=== PATIENT | male | born 1950 | race African-American/Black ===

== ENCOUNTER → 2016-03-29 | Outpatient (CLI) | payer MEDICARE, OTHER ==
--- NOTE | 2016-03-29 09:34 | ST Modified Barium Swallow ---
Recommendation - Recommendations Recommendations: 1) DIET: continue current diet. 2) Fully upright during meals. 3) Pt reports following GI-in agreement with continued GI consult. SUMMARY: Pt presents with safe swallow. No penetration or aspiration observed during study. No pharyngeal residuals seen during MBSS. Per RA, possible calcification around approximately level of C3-4. Calcification possibly resulting in reduced pharyngeal peristalsis and occasionally obstructing epiglottic inversion, however not resulting in penetration, aspiration, or pharyngeal residuals. Pt observed to have possible variance of hyoid and epiglottis, however did not result in reduced swallow safety. Pt completed barium swallow prior to MBSS, RA reported hiatal hernia and reflux observed. Medical Diagnoses - Medical Diagnoses Medical Diagnosis Description & ICD-10 Code(s): GERD k21.9 Other Medical Diagnoses/Co-Morbidities: COPD, asthma, reflux, high blood pressure. - ICD-10 Tx Diagnosis Coding (1) Dysphagia, unspecified ICD-10 Code(s): R13.10 - DYSPHAGIA, UNSPECIFIED ST Modified Barium Swallow - General Date: 03/29/16 Referring Physician: Dr Castellanos Risks/Precautions: None Date of Onset: 11/27/15 Reason for Referral: GERD - History History obtained from: Patient -: Medical - Pt refered by pulmonology due to GERD. Pt denies coughing, choking , globus sensation, or histiory of PNA or bronchitis. Pt reports food "takes a long time to digest" and when he lays down food comes back up, even when he is sleeping. Pt reports last night he woke up to vomiting. PMHx: COPD, asthma, reflux, high blood pressure. Medications: omeprozole, symbicort, fluticasone, predisone, lubricant eye drops , voltaren gel, proair, cetirizine, singular, losartan, pulmicort, metformin, vitamin B. Allergies: NKA - Functional Status Prior Functional Status: INDEPENDENT: feeding Current Functional Limitations: feeding - Subjective Patient/caregiver goal(s): safe swallow, r/o aspiration Cognitive-Linguistic Function: WNL Speech Intelligibility: WNL Current Nutritional Means: PO Current PO diet: Regular Current symptoms: other - GERD Pain: 0/5 - Objective Assessment: Upright, Left Lateral - Food Trials Used Food trials used: Thin liquids, Regular The patient: Was Able to Self Feed - Oral-Motor Skills Dentition: Partial Velo-pharyngeal function: Unremarkable Laryngeal Function: Volitional Cough, Volitional Swallow - Assessment Oral prep: Normal Labial closure: Adequate Mastication: Adequate Lingual Movement: Normal Oral stage: Normal for this Procedure - Pharyngeal Stage Initiation of Pharyngeal Stage Reflex: Normal Decreased laryngeal elevation: No Reduced Velopharyngeal Closure: no Reduced pressure generation: No reduced tongue-based retraction: No Pre-swallow pooling in valleculae: None Pre-Swallow pooling in pyriforms: None Reduced Thyro-Hyoid approximation: No Reduced epiglottic excursion: No - refer to summary for details Reduced pharyngeal peristalsis/contraction: Yes - possibly due to calcifications. Calcifications per RA. Reduced pharyngeal peristasis not resulting in pharyngeal residuals. Post-swallow residulas vallecular: None Post-Swallow residuals in pyriforms: None Reduced Cricopharyngeal opening: No - Fall Risk Assessment Medications/Conditions that increase fall risks include: Antidepressants, sedatives, anti-arrhythmic, diuretic, benzodiazipenes, neuroleptics. BP regulation problems, cardiac problems, balance or gait deficits, neurological problems. Is patient considered at risk for falls: no Fall Risk Actions Taken: No action needed - Behavioral Observations During evaluation process patient: was pleasant, was cooperative, able to answer questions, provided medical history - Treatment / Educational Needs: Treatment/Education Needs: Treatment consisted of patient education on the role of the Speech Pathologist. Patient's plan of care and golas were communicated as well as scheduling and attendance policies. Recommendations for initial home program were shared. Patient demonstrated understanding and verbalized agreement. - Impression/Summary Laryngeal Penetration: No Tracheal Aspiration: no Patient presents with: Normal swallow at eval - safe swallow observed Risk of Aspiration: Minimal - Recommendations NPO: no Solid diet recommendations: Regular Liquid Diet Modification: Thin Strict aspiration precautions: No Pt/Family education and followup with MD: Yes Dysphagia therapy with LICENSE DISTRIBUTOR: no Recommended techniques: Fully Upright During Meal Supervision: Independent Information, Precautions and Recommendations: Patient (Verbal) - Time Total Time: 20 - Plan of Care Strategies to optimize patient understanding include:: ongoing assessment of educational needs, implementation of educational strategies, and re-education. - - -: Thank you for the opportunity to work with this patient and his/her family. Should you have any questions about this patient's plan or progress, I can be reached at [phone]. Charge G Code? - - -: Yes ST [facility] Impairment Category - Rationale Based On Rationale Based On: Clin Find., Obj Measures - Swallowing Current G8996: CH 0% Impaired Goal G8997: CH 0% Impaired Discharge G8998: CH 0% Impaired
== END ==
LOC: RAD 06:54
PROVIDERS: ATTEND Internal Medicine Pulmonary Disease
DX: K21.9 Gastro-esophageal reflux disease without esophagitis (principal)
CPT/HCPCS: 74247; 74230; 92611; G8996; G8997; G8998

== ENCOUNTER → 2016-04-05 | Outpatient (CLI) | payer MEDICARE, OTHER ==
[2016-04-05 10:55] LABS: ARTERIAL BLOOD BASE EXCESS 3.4 mmol/L; ARTERIAL BLOOD O2 SATURATION 95.9 % (94-98)
[2016-04-05 11:12] LABS: ABSOLUTE LYMPHOCYTES (AUTO) 0.7 10^3/uL (0.5-4.7); ABSOLUTE MONOCYTES (AUTO) 0.6 10^3/uL (0.1-1.4); ABSOLUTE NEUT (AUTO) 5.4 10^3/uL (1.7-8.2); BASOPHILS % (AUTO) 0.6 % (0-2); EOSINOPHILS % (AUTO) 0.3 % (0-6); HEMATOCRIT 43.6 % (37.9-51.0); HEMOGLOBIN 14.3 g/dL (13.5-17.0); HGB HCT DIFFERENCE -0.7; LYMPHOCYTES % (AUTO) 10.7 % (13-45); MEAN CORPUSCULAR HEMOGLOBIN 30.5 pg (27.0-33.4); MEAN CORPUSCULAR HGB CONC 32.9 g/dL (32.0-36.0); MEAN CORPUSCULAR VOLUME 93 fl (80-97); MONOCYTES % (AUTO) 8.4 % (3-13); RED BLOOD COUNT 4.71 10^6/uL (4.35-5.55); RED CELL DISTRIBUTION WIDTH 13.3 % (11.5-14.0); WHITE BLOOD COUNT 6.7 10^3/uL (4.0-10.5)
[2016-04-05 11:18] LABS: APPEARANCE,URINE SLIGHTLY-CLOUDY; BILIRUBIN,URINE NEGATIVE (NEGATIVE); GLUCOSE, URINE NEGATIVE (NEGATIVE); KETONES,URINE NEGATIVE (NEGATIVE); LEUKOCYTE ESTERASE,URINE NEGATIVE (NEGATIVE); NITRITE,URINE NEGATIVE (NEGATIVE); PROTEIN,URINE NEGATIVE (NEGATIVE); URINE SPECIFIC GRAVITY 1.014; UROBILINOGEN,URINE NEGATIVE mg/dL (<2.0)
[2016-04-05 11:32] LABS: ANION GAP 13 (5-19); BLOOD UREA NITROGEN 14 mg/dL (7-20); CALCIUM 9.5 mg/dL (8.4-10.2); CARBON DIOXIDE 25 mmol/L (22-30); CHLORIDE 96 mmol/L (98-107); CREATININE RESULT 1.12 mg/dL (0.52-1.25); GLUCOSE 123 mg/dL (75-110); POTASSIUM 4.7 mmol/L (3.6-5.0); SODIUM 133.9 mmol/L (137-145)
== END ==
LOC: OD 09:45
PROVIDERS: ATTEND Internal Medicine Pulmonary Disease
DX: R06.00 Dyspnea, unspecified (principal); R05 Cough
CPT/HCPCS: 36415; 36600; 71020; 71275; 80048; 81001; 82803; 85025; 87040

== ENCOUNTER → 2016-04-27 | Outpatient (CLI) | payer MEDICARE, OTHER | LOC: RAD 15:35 | PROVIDERS: ATTEND Internal Medicine Pulmonary Disease | DX: R91.1 Solitary pulmonary nodule (principal); J44.9 Chronic obstructive pulmonary disease, unspecified | CPT/HCPCS: 78814; A9552 ==

== ENCOUNTER 2016-07-05 12:04 | Inpatient (IN) | payer MEDICARE, OTHER ==
[2016-07-05] MEDS ORDERED: METHYLPREDNISOLONE INJ 125 MG/2 ML SDV IV ONE (12:45)
[2016-07-05] MEDS ORDERED: IPRATROPIUM/ALBUTEROL 0.5-2.5 MG/3 ML AMPUL NEB ONE ×2 (12:45→13:51)
--- NOTE | 2016-07-05 12:48 | ER Document Report ---
ED Medical Screen (RME) - General Chief Complaint: Breathing Difficulty Stated Complaint: DIFFICULTY BREATHING Time Seen by Provider: 07/05/16 12:44 Notes: Patient is having difficulty breathing. Says his home medications are not working. Patient has a history of COPD and has home nebulizers and home O2 that he keeps at 3 L. His saturation levels have been acceptable so long as he stays still and does not move around, but dropped if he tries to walk. Does began as a "cold" about a week ago. He has a cough is productive of yellow sputum. Denies any chest pains. Denies any fever. Patient says he stopped smoking about 2 months ago. Appears short of breath with difficulty breathing and labored respirations. Distant, decreased lung sounds bilaterally with scattered wheezes bilaterally, as well. TRAVEL OUTSIDE OF THE [place] IN LAST 30 DAYS: No - Related Data Allergies/Adverse Reactions: No Known Allergies Allergy (Unverified 08/27/11 08:07) Past Medical History - Social History Chew tobacco use (# tins/day): No Frequency of alcohol use: Social Drug Abuse: None - Past Medical History Cardiac Medical History: Reports: Hx Hypertension Pulmonary Medical History: Reports: Hx COPD Endocrine Medical History: Reports: Hx Diabetes Mellitus Type 2 - Diet controlled Renal/ Medical History: Denies: Hx Peritoneal Dialysis Surgical Hx: Negative - Immunizations Hx Diphtheria, Pertussis, Tetanus Vaccination: No Physical Exam - Vital signs Vitals: Temp Pulse Resp BP Pulse Ox 98.0 F 103 H 26 H 158/96 H 94 07/05/16 12:05 07/05/16 12:05 07/05/16 12:05 07/05/16 12:05 07/05/16 12:05 Course - Vital Signs Vital signs: Temp Pulse Resp BP Pulse Ox 98.0 F 108 H 24 H 158/96 H 97 07/05/16 12:05 07/05/16 12:28 07/05/16 12:18 07/05/16 12:05 07/05/16 12:28
[2016-07-05 12:56] LABS: ABSOLUTE EOSINOPHILS # (AUTO) 0.5 10^3/uL (0.0-0.6); ABSOLUTE LYMPHOCYTES (AUTO) 1.6 10^3/uL (0.5-4.7); ABSOLUTE NEUT (AUTO) 10.2 10^3/uL (1.7-8.2); BASOPHILS % (AUTO) 0.3 % (0-2); EOSINOPHILS % (AUTO) 3.6 % (0-6); HEMATOCRIT 46.7 % (37.9-51.0); HGB HCT DIFFERENCE -1.7; MEAN CORPUSCULAR HEMOGLOBIN 29.9 pg (27.0-33.4); MEAN CORPUSCULAR HGB CONC 32.2 g/dL (32.0-36.0); MEAN CORPUSCULAR VOLUME 93 fl (80-97); MONOCYTES % (AUTO) 7.1 % (3-13); RED BLOOD COUNT 5.02 10^6/uL (4.35-5.55); WHITE BLOOD COUNT 13.3 10^3/uL (4.0-10.5)
[2016-07-05 13:15] LABS: ALANINE AMINOTRANSFERASE 32 U/L (21-72); ALBUMIN 4.5 g/dL (3.5-5.0); ALKALINE PHOSPHATASE 78 U/L (38-126); ANION GAP 10 (5-19); ASPARTATE AMINO TRANSFERASE 29 U/L (17-59); BILIRUBIN,DIRECT 0.4 mg/dL (0.0-0.4); BLOOD UREA NITROGEN 14 mg/dL (7-20); CALCIUM 10.2 mg/dL (8.4-10.2); CARBON DIOXIDE 32 mmol/L (22-30); CHLORIDE 99 mmol/L (98-107); CREATININE RESULT 0.84 mg/dL (0.52-1.25); GLUCOSE 135 mg/dL (75-110); POTASSIUM 4.7 mmol/L (3.6-5.0); SODIUM 141.2 mmol/L (137-145); TOTAL PROTEIN 8.3 g/dL (6.3-8.2)
[2016-07-05 13:38] LABS: CREATINE KINASE MB 2.46 ng/mL (<4.55)
[2016-07-05 13:39] LABS: TROPONIN I < 0.012 ng/mL
--- NOTE | 2016-07-05 13:57 | ER Document Report ---
ED Respiratory Problem - General Information source: Patient TRAVEL OUTSIDE OF THE [place] IN LAST 30 DAYS: No - HPI Patient complains to provider of: COPD, Short of breath Onset: Other Duration: Worse/persistent Short of Breath: Moderate <SAMI VAN - Last Filed: 07/05/16 13:58> <JIHAN LINARES - Last Filed: 07/05/16 18:56> - General Chief Complaint: Breathing Difficulty Stated Complaint: DIFFICULTY BREATHING Time Seen by Provider: 07/05/16 12:44 Notes: Patient is a 65-year-old male that presents to emergency department today with complaints of shortness of breath for the last week and a half. Patient also has a slight cough. Patient is on 2 L of home O2 at baseline. Patient has a history of asthma and COPD. Patient is in moderate respiratory distress. (SAMI VAN) - Related Data Allergies/Adverse Reactions: No Known Allergies Allergy (Unverified 08/27/11 08:07) Home Medications: Current Home Medications Benzonatate [Tessalon Perles 100 mg Capsule] 100 mg PO Q8 07/05/16 [History] Cetirizine HCl [Zyrtec 10 mg Tablet] 10 mg PO DAILY 07/05/16 [History] Diclofenac Sodium [Voltaren] 1 applic TP QID 07/05/16 [History] Ergocalciferol (Vitamin D2) [Vitamin D2] 50,000 unit PO Q7D 07/05/16 [History] Fluticasone Propionate [Flonase Nasal [place] 50 Mcg/[place] 16 gm] 2 sprays NAREB DAILY 07/05/16 [History] Glimepiride [Amaryl] 2 mg PO DAILY 07/05/16 [History] Ipratropium/Albuterol Sulfate [Duoneb 3 ml Ampul] 3 ml NEB RTQID 07/05/16 [ History] Losartan Potassium [Cozaar 25 mg Tablet] 25 mg PO DAILY 07/05/16 [History] Metformin HCl [Glucophage] 1,000 mg PO BIDACBS 07/05/16 [History] Montelukast Sodium [Singulair 10 mg Tablet] 10 mg PO DAILY 07/05/16 [History] Omeprazole 40 mg PO BID 07/05/16 [History] Simvastatin [Zocor 10 mg Tablet] 10 mg PO QHS 07/05/16 [History] Past Medical History - General Information source: Patient, [facility] Records - Social History Smoking Status: Former Smoker Cigarette use (# per day): No Chew tobacco use (# tins/day): No Frequency of alcohol use: Social Drug Abuse: None Lives with: Family Family History: Reviewed & Not Pertinent, CAD, COPD - Past Medical History Cardiac Medical History: Reports: Hx Hypertension Pulmonary Medical History: Reports: Hx Asthma, Hx COPD Endocrine Medical History: Reports: Hx Diabetes Mellitus Type 2 - Diet controlled Surgical Hx: Negative - Immunizations Hx Diphtheria, Pertussis, Tetanus Vaccination: No Hx Pneumococcal Vaccination: 11/28/15 <SAMI VAN - Last Filed: 07/05/16 13:58> Review of Systems - Review of Systems Constitutional: No symptoms reported EENT: No symptoms reported Cardiovascular: No symptoms reported Respiratory: See HPI, Cough, Short of breath Gastrointestinal: No symptoms reported Genitourinary: No symptoms reported Male Genitourinary: No symptoms reported Musculoskeletal: No symptoms reported Skin: No symptoms reported Hematologic/Lymphatic: No symptoms reported Neurological/Psychological: No symptoms reported -: Yes All other systems reviewed and negative <SAMI VAN - Last Filed: 07/05/16 13:58> Physical Exam - Vital signs Interpretation: Hypertensive, Tachycardic, Hypoxic, Tachypneic - General General appearance: Alert In distress: Moderate - Respiratory Respiratory status: Respiratory distress, Retractions, Tachypnea Chest status: Accessory muscle use Breath sounds: Decreased air movement, Wheezing - Cardiovascular Rhythm: Regular, Tachycardia - Abdominal Inspection: Normal Bowel sounds: Normal Tenderness: Nontender - Back Back: Normal - Extremities General upper extremity: Normal inspection, Nontender, Normal color, Normal ROM , Normal temperature General lower extremity: Normal inspection, Nontender, Normal color, Normal ROM , Normal temperature, Normal weight bearing. No: Rishabh's sign - Neurological Neuro grossly intact: Yes Cognition: Normal Orientation: AAOx4 Sol Coma Scale Eye Opening: Spontaneous Sol Coma Scale Verbal: Oriented Sol Coma Scale Motor: Obeys Commands [place] Coma Scale Total: 15 Speech: Normal Motor strength normal: LUE, RUE, LLE, RLE Sensory: Normal - Skin Skin Temperature: Warm Skin Moisture: Dry Skin Color: Normal <JIHAN LINARES - Last Filed: 07/05/16 18:56> - Vital signs Vitals: Temp Pulse Resp BP Pulse Ox 98.0 F 103 H 26 H 158/96 H 94 07/05/16 12:05 07/05/16 12:05 07/05/16 12:05 07/05/16 12:05 07/05/16 12:05 Course - Laboratory Result Diagrams: 07/05/16 12:35 07/05/16 12:35 <SAMI VAN - Last Filed: 07/05/16 13:58> - Laboratory Result Diagrams: 07/05/16 12:35 07/05/16 12:35 - Diagnostic Test Radiology reviewed: Image reviewed, Reports reviewed - EKG Interpretation by Ma EKG shows normal: Sinus rhythm Rate: Tachycardia <JIHAN LINARES - Last Filed: 07/05/16 18:56> - Re-evaluation Re-evalutation: 07/05/16 Patient is a 65-year-old male with a history of COPD who sees Dr. Castellanos from pulmonology. Patient presents with difficulty breathing that has been increasing over the last week. Patient was given nebulizer treatments and Solu- Medrol here in the emergency department but continued to have difficulty breathing. Patient was placed on BiPAP and given Solu-Medrol. Patient will be admitted to the hospitalist service to the [facility]. No evidence for pneumonia on x -ray. Patient is stable at the time of admission. Understands and agrees with plan (JIHAN LINARES) - Vital Signs Vital signs: Temp Pulse Resp BP Pulse Ox 97.6 F 108 H 26 H 137/83 H 85 L 07/05/16 17:17 07/05/16 12:28 07/05/16 18:02 07/05/16 18:02 07/05/16 18:02 - Laboratory Laboratory results interpreted by md: 07/05/16 07/05/16 12:35 12:35 WBC 13.3 H Lymphocytes % 12.0 L Absolute Neutrophils 10.2 H Carbon Dioxide 32 H Glucose 135 H Total Protein 8.3 H Critical Care Note - Critical Care Note Total time excluding time spent on procedures (mins): 45 - Patient and management of respiratory distress, COPD exacerbation, multiple re-evaluations, initiation of BiPAP, coordination of admission, counseling of patient <JIHAN LINARES - Last Filed: 07/05/16 18:56> Discharge <SAMI VAN - Last Filed: 07/05/16 13:58> - Discharge Admitting Provider: Hospitalist - [facility] Unit Admitted: [facility] <JIHAN LINARES - Last Filed: 07/05/16 18:56> - Discharge Clinical Impression: COPD exacerbation, Hypoxemia Condition: Stable Disposition: ADMITTED INPATIENT Scribe Attestation: 07/05/16 18:56 I personally performed the services described in the documentation, reviewed and edited the documentation which was dictated to the scribe in my presence, and it accurately records my words and actions. (JIHAN LINARES) Scribe Documentation - Scribe Written by Scrjasbire:: Jerry Corona, 07/05/16 [id number] acting as scribe for :: Mara <SAMI VAN - Last Filed: 07/05/16 13:58>
[2016-07-05] MEDS: MAGNESIUM SULFATE/D5W 100 ML IV SCH ×2 (14:17→14:21)
[2016-07-05 14:32] LABS: VENOUS BLOOD BASE EXCESS 3.5 mmol/L; VENOUS BLOOD HCO3 31.3 mmol/L (20-32); VENOUS BLOOD PCO2 60.1 mmHg (35-63); VENOUS BLOOD PH 7.33 (7.30-7.42)
--- NOTE | 2016-07-05 14:46 | RADIOLOGY REPORT (SQ) ---
EXAM DESCRIPTION: CHEST SINGLE VIEW COMPLETED DATE/TIME: 07/05/2016 2:35 pm REASON FOR STUDY: shortness of breath COMPARISON: None. EXAM PARAMETERS: NUMBER OF VIEWS: One view. TECHNIQUE: Single frontal radiographic view of the chest acquired. RADIATION DOSE: NA LIMITATIONS: None. FINDINGS: LUNGS AND PLEURA: No opacities, masses or pneumothorax. No pleural effusion. MEDIASTINUM AND HILAR STRUCTURES: No masses. Contour normal. HEART AND VASCULAR STRUCTURES: Heart normal in size. Normal vasculature. BONES: No acute findings. HARDWARE: None in the chest. OTHER: No other significant finding. IMPRESSION: NO ACUTE RADIOGRAPHIC FINDING IN THE CHEST. TECHNICAL DOCUMENTATION: JOB ID: [id number]
[2016-07-05] MEDS ORDERED: ACETAMINOPHEN 325 MG TABLET PO PRN (17:06)
[2016-07-05] MEDS ORDERED: ONDANSETRON 4 MG TAB.RAPDIS PO PRN (17:06)
[2016-07-05] MEDS ORDERED: ONDANSETRON HCL INJ/PF 4 MG/2 ML SDV IV PRN (17:06)
[2016-07-05] MEDS ORDERED: LEVALBUTEROL HCL NEB 0.63 MG/3 ML AMPUL NEB PRN (17:06)
[2016-07-05] MEDS ORDERED: DEXTROSE 40% GEL 15 GM TUBE PO PRN ×2 (17:15)
[2016-07-05] MEDS ORDERED: GLUCAGON,HUMAN RECOMB 1 MG INJ IM PRN (17:15)
[2016-07-05] MEDS ORDERED: DEXTROSE 50%-WATER 25 GM/50 ML DISP.SYRIN IV PRN ×2 (17:15)
--- NOTE | 2016-07-05 17:23 | PDOC H&P ---
History of Present Illness Admission Date/PCP: 07/05/16 16:52 JESIKA STROUD NP Patient complains of: Shortness of breath History of Present Illness: RICHARD FOOTE is a 65 year old male with a history of COPD who presents with a 1-1/2 week history of a dry nonproductive cough, shortness of breath, wheezing. Patient reports that he is gotten progressively worse over the weekend and called his corporate manager today. His corporate manager was not available and he was instructed to come to the emergency room. Here in the emergency room the patient was found to have significant expiratory wheezes and some moderate respiratory distress requiring BiPAP. At the time of my exam the patient reports that he was feeling better and was not having as significant respiratory distress. Patient denies any fevers or chills. He denies any chest pain. Denies any orthopnea, PND or lower extremity edema. He denies any recent travel. He does not have any sick exposures. He has had a cough but reports that it has been a dry nonproductive cough. Past Medical History Cardiac Medical History: Reports: Hypertension Pulmonary Medical History: Reports: Chronic Obstructive Pulmonary Disease (COPD) Endocrine Medical History: Reports: Diabetes Mellitus Type 2 - Diet controlled Renal/ Medical History: Reports: None Malignancy Medical History: Reports: None GI Medical History: Reports: Gastroesophageal Reflux Disease, Hiatal Hernia Musculoskeltal Medical History: Reports: None Skin Medical History: Reports: None Psychiatric Medical History: Reports: None Traumatic Medical History: Reports: None Hematology: Reports: None Infectious Medical History: Reports: None Past Surgical History Past Surgical History: Reports: Herniorrhaphy Social History Information Source: Patient Lives with: Family Smoking Status: Former Smoker Frequency of Alcohol Use: Rare Hx Recreational Drug Use: No Drugs: None Hx Prescription Drug Abuse: No - Advance Directive Resuscitation Status: Full Code Family History Family History: CAD, COPD Family History: The at age 76 from coronary artery disease. Mother at age 46 from uterine cancer. Parental Family History Reviewed: Yes Children Family History Reviewed: No Sibling(s) Family History Reviewed.: No Medication/Allergy Home Medications: Benzonatate [Tessalon Perles 100 mg Capsule] 100 mg PO Q8 07/05/16 Cetirizine HCl [Zyrtec 10 mg Tablet] 10 mg PO DAILY 07/05/16 Diclofenac Sodium [Voltaren] 1 applic TP QID 07/05/16 Ergocalciferol (Vitamin D2) [Vitamin D2] 50,000 unit PO Q7D 07/05/16 Fluticasone Propionate [Flonase Nasal [place] 50 Mcg/[place] 16 gm] 2 sprays NAREB DAILY 07/05/16 Glimepiride [Amaryl] 2 mg PO DAILY 07/05/16 Ipratropium/Albuterol Sulfate [Duoneb 3 ml Ampul] 3 ml NEB RTQID 07/05/16 Losartan Potassium [Cozaar 25 mg Tablet] 25 mg PO DAILY 07/05/16 Metformin HCl [Glucophage] 1,000 mg PO BIDACBS 07/05/16 Montelukast Sodium [Singulair 10 mg Tablet] 10 mg PO DAILY 07/05/16 Omeprazole 40 mg PO BID 07/05/16 Simvastatin [Zocor 10 mg Tablet] 10 mg PO QHS 07/05/16 Allergies/Adverse Reactions: No Known Allergies Allergy (Unverified 08/27/11 08:07) Review of Systems Constitutional: ABSENT: chills, fever(s), headache(s), weight gain, weight loss Eyes: ABSENT: visual disturbances Ears: ABSENT: hearing changes Cardiovascular: PRESENT: dyspnea on exertion. ABSENT: chest pain, edema, orthropnea, palpitations Respiratory: PRESENT: cough, dyspnea. ABSENT: hemoptysis, sputum Gastrointestinal: ABSENT: abdominal pain, constipation, diarrhea, hematemesis, hematochezia, nausea, vomiting Genitourinary: ABSENT: dysuria, hematuria Musculoskeletal: ABSENT: joint swelling Integumentary: ABSENT: rash, wounds Neurological: ABSENT: abnormal gait, abnormal speech, confusion, dizziness, focal weakness, syncope Psychiatric: ABSENT: anxiety, depression Endocrine: ABSENT: cold intolerance, heat intolerance, polydipsia, polyuria Hematologic/Lymphatic: ABSENT: easy bleeding, easy bruising Physical Exam Vital Signs: Temp Pulse Resp BP Pulse Ox 98.0 F 108 H 25 H 156/106 H 90 L 07/05/16 12:05 07/05/16 12:28 07/05/16 17:02 07/05/16 17:02 07/05/16 17:02 General appearance: PRESENT: mild distress Head exam: PRESENT: atraumatic, normocephalic Eye exam: PRESENT: conjunctiva pink, EOMI, PERRLA. ABSENT: scleral icterus Ear exam: PRESENT: normal external ear exam Mouth exam: PRESENT: moist, tongue midline Neck exam: ABSENT: carotid bruit, JVD, lymphadenopathy, thyromegaly Respiratory exam: PRESENT: wheezes - Scattered bilateral expiratory wheezes.. ABSENT: rales, rhonchi Cardiovascular exam: PRESENT: RRR. ABSENT: diastolic murmur, rubs, systolic murmur Pulses: PRESENT: normal dorsalis pedis pul Vascular exam: PRESENT: normal capillary refill GI/Abdominal exam: PRESENT: normal bowel sounds, soft, other - Easily reducible umbilical hernia. ABSENT: distended, guarding, mass, organolmegaly, rebound, tenderness Rectal exam: PRESENT: deferred Extremities exam: ABSENT: calf tenderness, clubbing, pedal edema Neurological exam: PRESENT: alert, awake, oriented to person, oriented to place , oriented to time, oriented to situation, CN II-XII grossly intact. ABSENT: motor sensory deficit Psychiatric exam: PRESENT: appropriate affect Skin exam: PRESENT: dry, intact, warm. ABSENT: cyanosis, rash Results Impressions: Chest X-Ray 07/05/16 00:00 IMPRESSION: NO ACUTE RADIOGRAPHIC FINDING IN THE CHEST. Assessment & Plan - Diagnosis (1) Acute respiratory failure Is this a current diagnosis for this admission?: YesPlan: Has acute respiratory failure secondary to acute COPD exacerbation. Patient may have a component of bronchitis and will cover with Zithromax, Solu-Medrol, nebulizers and BiPAP as needed. (2) COPD exacerbation Is this a current diagnosis for this admission?: YesPlan: Will treat with Solu-Medrol, nebulizers, Zithromax and BiPAP as needed (3) Diabetes 1.5, managed as type 2 Is this a current diagnosis for this admission?: YesPlan: The patient will be covered with sliding scale insulin while hospitalized. We will hold his oral agents for now. (4) GERD (gastroesophageal reflux disease) Is this a current diagnosis for this admission?: Yes (5) Hypertension Qualifiers: Hypertension type: essential hypertension Qualified Code(s): I10 - Essential (primary) hypertension Is this a current diagnosis for this admission?: YesPlan: His blood pressures have been fluctuating. We will monitor these closely. - Time Time Spent: 50 to 70 Minutes - Inpatient Certification Medical Necessity: Need Close Monitoring Due to Risk of Patient Decompensation - Plan Summary Plan Summary: We will admit as an inpatient as I anticipate his respiratory failure requiring greater than 2 midnight stay because of his need for IV steroids as well as BiPAP.
[2016-07-05] MEDS ORDERED: (PENDING PHARMACY ID) (Diclofenac Sodium [Voltaren] 1 APPLIC) TP SCH (18:00)
[2016-07-05] MEDS ORDERED: AZITHROMYCIN 500 MG in DEXTROSE 5%-WATER 250 ML IV SCH (18:00)
--- NOTE | 2016-07-05 18:29 | EKG REPORT ---
SEVERITY:- BORDERLINE ECG - SINUS TACHYCARDIA BORDERLINE T ABNORMALITIES, ANT-LAT LEADS : Confirmed by: Mundo Callahan MD 05-Jul-2016 18:28:51
[2016-07-05] MEDS ORDERED: ENOXAPARIN SODIUM INJ 40 MG/0.4 ML DISP.SYRIN SUBCUT ONE (19:00)
[2016-07-05] MEDS: IPRATROPIUM/ALBUTEROL 0.5-2.5 MG/3 ML AMPUL NEB SCH (19:34)
[2016-07-05] MEDS: BENZONATATE 100 MG CAPSULE PO SCH (21:18)
[2016-07-05] MEDS: FAMOTIDINE 20 MG TABLET PO SCH (21:18)
[2016-07-05] MEDS: METHYLPREDNISOLONE INJ 40 MG/1 ML SDV IV SCH (21:18)
[2016-07-05] MEDS: SIMVASTATIN 10 MG TABLET PO SCH (21:18)
[2016-07-05] MEDS: INSULIN LISPRO 100 UNIT/ML 3 ML VIAL SUBCUT PRN (22:41)
[2016-07-06 05:01] LABS: HEMOGLOBIN 13.7 g/dL (13.5-17.0); HGB HCT DIFFERENCE -0.9; MEAN CORPUSCULAR HEMOGLOBIN 30.2 pg (27.0-33.4); MEAN CORPUSCULAR HGB CONC 32.6 g/dL (32.0-36.0); MEAN CORPUSCULAR VOLUME 93 fl (80-97); RED BLOOD COUNT 4.53 10^6/uL (4.35-5.55); RED CELL DISTRIBUTION WIDTH 13.1 % (11.5-14.0); WHITE BLOOD COUNT 10.8 10^3/uL (4.0-10.5)
[2016-07-06 05:30] LABS: ANION GAP 9 (5-19); BLOOD UREA NITROGEN 26 mg/dL (7-20); CALCIUM 9.5 mg/dL (8.4-10.2); CARBON DIOXIDE 31 mmol/L (22-30); CHLORIDE 98 mmol/L (98-107); CREATININE RESULT 1.03 mg/dL (0.52-1.25); GLUCOSE 188 mg/dL (75-110); POTASSIUM 5.4 mmol/L (3.6-5.0); SODIUM 137.5 mmol/L (137-145)
[2016-07-06] MEDS: METHYLPREDNISOLONE INJ 40 MG/1 ML SDV IV SCH ×3 (06:05→21:50)
[2016-07-06] MEDS: BENZONATATE 100 MG CAPSULE PO SCH ×3 (06:05→21:50)
[2016-07-06] MEDS: IPRATROPIUM/ALBUTEROL 0.5-2.5 MG/3 ML AMPUL NEB SCH ×3 (08:33→20:51)
[2016-07-06] MEDS: LOSARTAN POTASSIUM 25 MG TABLET PO SCH (09:54)
[2016-07-06] MEDS: MONTELUKAST SODIUM 10 MG TABLET PO SCH (09:54)
[2016-07-06] MEDS: FAMOTIDINE 20 MG TABLET PO SCH ×2 (09:55→21:50)
[2016-07-06] MEDS: CETIRIZINE 10 MG TABLET PO SCH (09:55)
[2016-07-06] MEDS: ENOXAPARIN SODIUM INJ 40 MG/0.4 ML DISP.SYRIN SUBCUT SCH (09:56)
[2016-07-06] MEDS: FLUTICASONE NASAL SPRAY 50 MCG/SPRY 120 SPRAY/16 GM NAREB SCH (09:57)
--- NOTE | 2016-07-06 10:43 | PDOC PROGRESS REPORT ---
Subjective Progress Note for:: 07/06/16 Subjective:: Still complains of feeling short of breath. Physical Exam Vital Signs: Temp Pulse Resp BP Pulse Ox 97.3 F 74 16 120/73 100 07/06/16 07:36 07/06/16 08:33 07/06/16 08:33 07/06/16 07:36 07/06/16 08:33 Intake & Output 07/05/16 07/06/16 07/07/16 06:59 06:59 06:59 Intake Total 212 Output Total 250 Balance -38 Weight 92.7 kg General appearance: PRESENT: mild distress Eye exam: PRESENT: conjunctiva pink. ABSENT: scleral icterus Mouth exam: PRESENT: moist, tongue midline Neck exam: ABSENT: carotid bruit, JVD, lymphadenopathy, thyromegaly Respiratory exam: PRESENT: wheezes. ABSENT: rales, rhonchi Cardiovascular exam: PRESENT: RRR. ABSENT: diastolic murmur, rubs, systolic murmur Vascular exam: PRESENT: normal capillary refill GI/Abdominal exam: PRESENT: normal bowel sounds, soft. ABSENT: distended, guarding, mass, organolmegaly, rebound, tenderness Extremities exam: ABSENT: calf tenderness, clubbing, pedal edema Neurological exam: PRESENT: alert, awake, oriented to person, oriented to place , oriented to time, oriented to situation, CN II-XII grossly intact. ABSENT: motor sensory deficit Psychiatric exam: PRESENT: appropriate affect Skin exam: PRESENT: dry, intact, warm. ABSENT: cyanosis, rash Results Laboratory Results: 07/06/16 04:48 07/06/16 04:48 07/06/16 07/06/16 04:48 04:48 WBC 10.8 H RBC 4.53 Hgb 13.7 Hct 42.0 MCV 93 MCH 30.2 MCHC 32.6 RDW 13.1 Plt Count 198 Sodium 137.5 Potassium 5.4 H Chloride 98 Carbon Dioxide 31 H Anion Gap 9 BUN 26 H Creatinine 1.03 Est GFR ( Amer) > 60 Est GFR (Non-Af Amer) > 60 Glucose 188 H Calcium 9.5 Impressions: Chest X-Ray 07/05/16 00:00 IMPRESSION: NO ACUTE RADIOGRAPHIC FINDING IN THE CHEST. Assessment & Plan - Diagnosis (1) Acute respiratory failure Is this a current diagnosis for this admission?: YesPlan: Has acute respiratory failure secondary to acute COPD exacerbation. Patient may have a component of bronchitis and will cover with Zithromax, Solu-Medrol, nebulizers and BiPAP as needed. Will consult pulmonary medicine for their opinion today. (2) COPD exacerbation Is this a current diagnosis for this admission?: YesPlan: Will treat with Solu-Medrol, nebulizers, Zithromax and BiPAP as needed (3) Diabetes 1.5, managed as type 2 Is this a current diagnosis for this admission?: YesPlan: The patient will be covered with sliding scale insulin while hospitalized. We will hold his oral agents for now. (4) GERD (gastroesophageal reflux disease) Is this a current diagnosis for this admission?: Yes (5) Hypertension Qualifiers: Hypertension type: essential hypertension Qualified Code(s): I10 - Essential (primary) hypertension Is this a current diagnosis for this admission?: YesPlan: His blood pressures have been fluctuating. We will monitor these closely. - Time Time Spent with patient: 25-34 minutes - Inpatient Certification Medical Necessity: Need Close Monitoring Due to Risk of Patient Decompensation - Plan Summary Plan Summary: We will continue with the above treatment and consult pulmonary medicine today.
[2016-07-06] MEDS: INSULIN LISPRO 100 UNIT/ML 3 ML VIAL SUBCUT PRN ×3 (12:46→21:50)
[2016-07-06] MEDS ORDERED: AZITHROMYCIN 250 MG TABLET PO SCH (18:00)
--- NOTE | 2016-07-06 19:47 | PDOC CONSULTATION ---
Consultation Consult Date: 07/06/16 Attending physician:: SARA AGUILAR Consult reason:: chronic resp failure History of Present Illness Admission Date/PCP: 07/05/16 17:06 JESIKA STROUD NP History of Present Illness: RICHARD FOOTE is a 65 year old male with a history of COPD who presents with a 1-1/2 week history of a dry nonproductive cough, shortness of breath, wheezing. Patient reports that he is gotten progressively worse over the weekend and called his telegraphic typewriter installer he was instructed to come to the emergency room. Here in the emergency room the patient was found to have significant expiratory wheezes and some moderate respiratory distress requiring BiPAP. At the time of my exam the patient reports that he was feeling better and was not having as significant respiratory distress. Patient denies any fevers or chills. He denies any chest pain. Denies any orthopnea, PND or lower extremity edema. He denies any recent travel. He does not have any sick exposures. He has had a cough but reports that it has been a dry nonproductive cough. [id number] history but has not smoked for 5 years. Denies nausea vomiting chills Past Medical History Cardiac Medical History: Reports: Hypertension Pulmonary Medical History: Reports: Asthma, Chronic Obstructive Pulmonary Disease (COPD) Endocrine Medical History: Reports: Diabetes Mellitus Type 2 - Diet controlled Renal/ Medical History: Reports: None Malignancy Medical History: Reports: None GI Medical History: Reports: Gastroesophageal Reflux Disease, Hiatal Hernia Musculoskeltal Medical History: Reports: None Skin Medical History: Reports: None Psychiatric Medical History: Reports: None Denies: Depression Traumatic Medical History: Reports: None Hematology: Reports: None Infectious Medical History: Reports: None Past Surgical History Past Surgical History: Reports: Herniorrhaphy Social History Information Source: Patient, DrJose Rafael Zamudio, [facility] Records Lives with: Family Smoking Status: Former Smoker Cigarettes Packs Per Day: 2 Number of Years Smokin Passive smoke exposure as: Both Frequency of Alcohol Use: Rare Hx Recreational Drug Use: No Drugs: None Hx Prescription Drug Abuse: No - Advance Directive Resuscitation Status: Full Code Family History Family History: CAD, COPD Parental Family History Reviewed: Yes Children Family History Reviewed: Yes Sibling(s) Family History Reviewed.: Yes Medication/Allergy Home Medications: Benzonatate [Tessalon Perles 100 mg Capsule] 100 mg PO Q8 07/05/16 Cetirizine HCl [Zyrtec 10 mg Tablet] 10 mg PO DAILY 07/05/16 Diclofenac Sodium [Voltaren] 1 applic TP QID 07/05/16 Ergocalciferol (Vitamin D2) [Vitamin D2] 50,000 unit PO Q7D 07/05/16 Fluticasone Propionate [Flonase Nasal [place] 50 Mcg/[place] 16 gm] 2 sprays NAREB DAILY 07/05/16 Glimepiride [Amaryl] 2 mg PO DAILY 07/05/16 Ipratropium/Albuterol Sulfate [Duoneb 3 ml Ampul] 3 ml NEB RTQID 07/05/16 Losartan Potassium [Cozaar 25 mg Tablet] 25 mg PO DAILY 07/05/16 Metformin HCl [Glucophage] 1,000 mg PO BIDACBS 07/05/16 Montelukast Sodium [Singulair 10 mg Tablet] 10 mg PO DAILY 07/05/16 Omeprazole 40 mg PO BID 07/05/16 Simvastatin [Zocor 10 mg Tablet] 10 mg PO QHS 07/05/16 Allergies/Adverse Reactions: No Known Allergies Allergy (Unverified 08/27/11 08:07) Physical Exam Vital Signs: Temp Pulse Resp BP Pulse Ox 97.3 F 74 16 120/73 100 07/06/16 07:36 07/06/16 08:33 07/06/16 08:33 07/06/16 07:36 07/06/16 08:33 Intake & Output 07/05/16 07/06/16 07/07/16 06:59 06:59 06:59 Intake Total 212 Output Total 250 Balance -38 Weight 92.7 kg General appearance: PRESENT: cooperative, disheveled, mild distress, well- developed, well-nourished Head exam: PRESENT: atraumatic, normocephalic Eye exam: PRESENT: conjunctiva pale, EOMI Mouth exam: PRESENT: dry mucosa, neck supple Neck exam: ABSENT: carotid bruit, JVD, lymphadenopathy, thyromegaly Respiratory exam: PRESENT: decreased breath sounds, prolonged expiratory phas, rhonchi, symmetrical, wheezes Cardiovascular exam: PRESENT: RRR, +S1, +S2 Pulses: PRESENT: normal radial pulses GI/Abdominal exam: PRESENT: normal bowel sounds, soft. ABSENT: distended, guarding, mass, organolmegaly, rebound, tenderness Rectal exam: PRESENT: deferred Musculoskeletal exam: PRESENT: normal inspection Neurological exam: PRESENT: alert, awake Psychiatric exam: PRESENT: normal mood Skin exam: PRESENT: dry, warm Results Laboratory Results: 07/06/16 04:48 07/06/16 04:48 07/06/16 07/06/16 04:48 04:48 WBC 10.8 H RBC 4.53 Hgb 13.7 Hct 42.0 MCV 93 MCH 30.2 MCHC 32.6 RDW 13.1 Plt Count 198 Sodium 137.5 Potassium 5.4 H Chloride 98 Carbon Dioxide 31 H Anion Gap 9 BUN 26 H Creatinine 1.03 Est GFR ( Amer) > 60 Est GFR (Non-Af Amer) > 60 Glucose 188 H Calcium 9.5 Impressions: Chest X-Ray 07/05/16 00:00 IMPRESSION: NO ACUTE RADIOGRAPHIC FINDING IN THE CHEST. Assessment & Plan - Diagnosis (1) Acute respiratory failure Is this a current diagnosis for this admission?: Yes (2) COPD exacerbation Is this a current diagnosis for this admission?: Yes (3) GERD (gastroesophageal reflux disease) Is this a current diagnosis for this admission?: Yes
[2016-07-06] MEDS: SIMVASTATIN 10 MG TABLET PO SCH (21:50)
[2016-07-07] MEDS: METHYLPREDNISOLONE INJ 40 MG/1 ML SDV IV SCH (05:35)
[2016-07-07] MEDS: BENZONATATE 100 MG CAPSULE PO SCH (05:35)
[2016-07-07 06:18] LABS: ABSOLUTE LYMPHOCYTES (AUTO) 1.2 10^3/uL (0.5-4.7); ABSOLUTE MONOCYTES (AUTO) 0.7 10^3/uL (0.1-1.4); ABSOLUTE NEUT (AUTO) 15.7 10^3/uL (1.7-8.2); BASOPHILS % (AUTO) 0.3 % (0-2); HEMATOCRIT 40.6 % (37.9-51.0); HEMOGLOBIN 12.9 g/dL (13.5-17.0); HGB HCT DIFFERENCE -1.9; LYMPHOCYTES % (AUTO) 6.7 % (13-45); MEAN CORPUSCULAR HEMOGLOBIN 29.7 pg (27.0-33.4); MEAN CORPUSCULAR HGB CONC 31.8 g/dL (32.0-36.0); MEAN CORPUSCULAR VOLUME 94 fl (80-97); MONOCYTES % (AUTO) 4.2 % (3-13); RED BLOOD COUNT 4.34 10^6/uL (4.35-5.55); SEGMENTED NEUTROPHILS % (AUTO) 88.8 % (42-78); WHITE BLOOD COUNT 17.6 10^3/uL (4.0-10.5)
[2016-07-07 06:31] LABS: ANION GAP 9 (5-19); BLOOD UREA NITROGEN 25 mg/dL (7-20); CALCIUM 9.6 mg/dL (8.4-10.2); CARBON DIOXIDE 32 mmol/L (22-30); CHLORIDE 101 mmol/L (98-107); CREATININE RESULT 0.93 mg/dL (0.52-1.25); GLUCOSE 195 mg/dL (75-110); POTASSIUM 5.3 mmol/L (3.6-5.0)
[2016-07-07] MEDS: INSULIN LISPRO 100 UNIT/ML 3 ML VIAL SUBCUT PRN ×2 (07:47→12:00)
[2016-07-07] MEDS: ENOXAPARIN SODIUM INJ 40 MG/0.4 ML DISP.SYRIN SUBCUT SCH (07:47)
[2016-07-07] MEDS: IPRATROPIUM/ALBUTEROL 0.5-2.5 MG/3 ML AMPUL NEB SCH (08:33)
[2016-07-07 08:52] VITALS: BP 140/82
[2016-07-07] MEDS: CETIRIZINE 10 MG TABLET PO SCH (09:17)
[2016-07-07] MEDS: MONTELUKAST SODIUM 10 MG TABLET PO SCH (09:17)
[2016-07-07] MEDS: FAMOTIDINE 20 MG TABLET PO SCH (09:18)
[2016-07-07] MEDS: LOSARTAN POTASSIUM 25 MG TABLET PO SCH (09:18)
[2016-07-07] MEDS: FLUTICASONE NASAL SPRAY 50 MCG/SPRY 120 SPRAY/16 GM NAREB SCH (09:26)
--- NOTE | 2016-07-07 10:45 | PDOC DISCHARGE SUMMARY ---
General - Admit/Disc Date/PCP Admission Date/Primary Care Provider: 07/05/16 17:06 JESIKA STROUD NP Discharge Date: 07/07/16 - Discharge Diagnosis (1) Acute respiratory failure Is this a current diagnosis for this admission?: YesSummary: Secondary to acute COPD exacerbation. (2) COPD exacerbation Is this a current diagnosis for this admission?: YesSummary: With IV steroids, nebulizers and BiPAP. (3) Diabetes 1.5, managed as type 2 Is this a current diagnosis for this admission?: Yes (4) GERD (gastroesophageal reflux disease) Is this a current diagnosis for this admission?: Yes (5) Hypertension Is this a current diagnosis for this admission?: Yes - Additional Information Resuscitation Status: Full Code Discharge Diet: Diabetic Discharge Activity: Activity As Tolerated Home Medications: Benzonatate [Tessalon Perles 100 mg Capsule] 100 mg PO Q8 07/05/16 Cetirizine HCl [Zyrtec 10 mg Tablet] 10 mg PO DAILY 07/05/16 Diclofenac Sodium [Voltaren] 1 applic TP QID 07/05/16 Ergocalciferol (Vitamin D2) [Vitamin D2] 50,000 unit PO Q7D 07/05/16 Fluticasone Propionate [Flonase Nasal [place] 50 Mcg/[place] 16 gm] 2 sprays NAREB DAILY 07/05/16 Glimepiride [Amaryl] 2 mg PO DAILY 07/05/16 Ipratropium/Albuterol Sulfate [Duoneb 3 ml Ampul] 3 ml NEB RTQID 07/05/16 Losartan Potassium [Cozaar 25 mg Tablet] 25 mg PO DAILY 07/05/16 Metformin HCl [Glucophage] 1,000 mg PO BIDACBS 07/05/16 Montelukast Sodium [Singulair 10 mg Tablet] 10 mg PO DAILY 07/05/16 Omeprazole 40 mg PO BID 07/05/16 Simvastatin [Zocor 10 mg Tablet] 10 mg PO QHS 07/05/16 Azithromycin [Zithromax 250 mg Tablet] 500 mg PO QPM #2 tablet 07/07/16 Prednisone 10 mg PO DAILY #39 tablet 07/07/16 History of Present Illness History of Present Illness: RICHARD FOOTE is a 65 year old male with a history of COPD who presents with a 1-1/2 week history of a dry nonproductive cough, shortness of breath, wheezing. Patient reports that he is gotten progressively worse over the weekend and called his confidential investigator today. His confidential investigator was not available and he was instructed to come to the emergency room. Here in the emergency room the patient was found to have significant expiratory wheezes and some moderate respiratory distress requiring BiPAP. At the time of my exam the patient reports that he was feeling better and was not having as significant respiratory distress. Patient denies any fevers or chills. He denies any chest pain. Denies any orthopnea, PND or lower extremity edema. He denies any recent travel. He does not have any sick exposures. He has had a cough but reports that it has been a dry nonproductive cough. Hospital Course Hospital Course: 65-year-old gentleman with a history of COPD who presented with COPD exacerbation. Patient was put on BiPAP as well as IV steroids and nebulizers. Had a component of bronchitis was treated with a Z-Corky. The patient has shown improvement and he is no longer having wheezing. We will send him home with a steroid taper. He will follow-up with his confidential investigator as an outpatient. The patient is anxious to get outpatient BiPAP machine. Physical Exam Vital Signs: Temp Pulse Resp BP Pulse Ox 97.5 F 84 20 140/82 H 97 07/07/16 08:38 07/07/16 08:38 07/07/16 08:38 07/07/16 08:38 07/07/16 08:38 Intake & Output 07/06/16 07/07/16 07/08/16 06:59 06:59 06:59 Intake Total 212 2009 Output Total 250 825 Balance -38 1184 Weight 92.7 kg 91.8 kg General appearance: PRESENT: no acute distress Eye exam: PRESENT: conjunctiva pink. ABSENT: scleral icterus Ear exam: PRESENT: normal external ear exam Mouth exam: PRESENT: moist, tongue midline Neck exam: ABSENT: JVD Respiratory exam: PRESENT: clear to auscultation alejandro. ABSENT: rales, rhonchi, wheezes Cardiovascular exam: PRESENT: RRR. ABSENT: diastolic murmur, rubs, systolic murmur GI/Abdominal exam: PRESENT: normal bowel sounds, soft. ABSENT: distended, guarding, mass, organolmegaly, rebound, tenderness Extremities exam: ABSENT: calf tenderness, clubbing, pedal edema Neurological exam: PRESENT: alert, awake, oriented to person, oriented to place , oriented to time, oriented to situation, CN II-XII grossly intact. ABSENT: motor sensory deficit Psychiatric exam: PRESENT: appropriate affect Skin exam: PRESENT: dry, intact, warm. ABSENT: cyanosis, rash Results Laboratory Results: 07/07/16 05:32 07/07/16 05:32 07/07/16 07/07/16 05:32 05:32 WBC 17.6 H RBC 4.34 L Hgb 12.9 L Hct 40.6 MCV 94 MCH 29.7 MCHC 31.8 L RDW 13.0 Plt Count 199 Seg Neutrophils % 88.8 H Lymphocytes % 6.7 L Monocytes % 4.2 Eosinophils % 0.0 Basophils % 0.3 Absolute Neutrophils 15.7 H Absolute Lymphocytes 1.2 Absolute Monocytes 0.7 Absolute Eosinophils 0.0 Absolute Basophils 0.0 Sodium 142.0 Potassium 5.3 H Chloride 101 Carbon Dioxide 32 H Anion Gap 9 BUN 25 H Creatinine 0.93 Est GFR ( Amer) > 60 Est GFR (Non-Af Amer) > 60 Glucose 195 H Calcium 9.6 Impressions: Chest X-Ray 07/05/16 00:00 IMPRESSION: NO ACUTE RADIOGRAPHIC FINDING IN THE CHEST. Qualifiers PATEINT BEING DISCHARGED WITH ANY OF THE FOLLOWING DIAGNOSIS?: No Plan Discharge Plan: Patient is discharged home in stable condition. Will follow up with his primary care and his confidential investigator in 1 week. Time Spent: Greater than 30 Minutes
[2016-07-12] MEDS ORDERED: ERGOCALCIFEROL (VITAMIN D2) 50000 UNIT (1.25 MG) CAPSULE PO SCH (10:00)
== END 2016-07-07 12:10 | disposition home or self-care (01) | DRG 190 ==
LOC: ER 12:04 → EH 16:52 → UNDOADMIN 16:52 → EH 17:06 → 3S 20:23
PROVIDERS: ADMIT Internal Medicine; ATTEND Internal Medicine
PROC: 5A09457 Assistance with Respiratory Ventilation, 24-96 Consecutive Hours, Continuous Positive Airway Pressure (ICD-10-PCS; principal; 2016-07-05)
PROC: 3E0F73Z Introduction of Anti-inflammatory into Respiratory Tract, Via Natural or Artificial Opening (ICD-10-PCS; 2016-07-05)
DX: J44.1 Chronic obstructive pulmonary disease with (acute) exacerbation (principal); J96.01 Acute respiratory failure with hypoxia; E11.9 Type 2 diabetes mellitus without complications; K21.9 Gastro-esophageal reflux disease without esophagitis; I10 Essential (primary) hypertension; I25.10 Atherosclerotic heart disease of native coronary artery without angina pectoris; Z99.81 Dependence on supplemental oxygen; Z79.899 Other long term (current) drug therapy; Z87.891 Personal history of nicotine dependence; Z82.49 Family history of ischemic heart disease and other diseases of the circulatory system; Z83.6 Family history of other diseases of the respiratory system; Z80.49 Family history of malignant neoplasm of other genital organs
CPT/HCPCS: 36415; 71010; 80048; 80053; 82553; 82803; 82962; 84484; 85025; 85027; 93005; 93010; 94640; 94660; 96374; 96375; 96376; 99291; J0456; J1650; J1815; J2920; J2930; J3475; J7060; J7614; J7620

== ENCOUNTER → 2016-07-12 | Outpatient (CLI) | payer MEDICARE, OTHER ==
[2016-07-12 09:51] LABS: ARTERIAL BLOOD BASE EXCESS 6.1 mmol/L; ARTERIAL BLOOD O2 SATURATION 97.8 % (94-98)
== END ==
LOC: OD 07:51
PROVIDERS: ATTEND Internal Medicine Pulmonary Disease
DX: J44.9 Chronic obstructive pulmonary disease, unspecified (principal)
CPT/HCPCS: 36600; 82803

== ENCOUNTER 2017-02-15 04:28 | Inpatient (IN) | payer MEDICARE, OTHER ==
[2017-02-15] MEDS ORDERED: ALBUTEROL SULFATE 0.083% NEB 2.5 MG/3 ML AMPUL NEB ONE ×2 (04:36→05:21)
--- NOTE | 2017-02-15 04:43 | ER Document Report ---
ED General - General Chief Complaint: Respiratory Distress Stated Complaint: RESPIRATORY DISTRESS Time Seen by Provider: 02/15/17 04:36 Notes: Patient is a 66-year-old male who presents with complaints of difficulty breathing. He did have a temp of 100.4 vomiting. No chest pain. No abdominal pain. No other complaints at this time. In route the paramedics said that he is having hard time tolerating CPAP and therefore that he given Versed 2 mg. He is now sleepy but tolerating it better. Magnesium 2 g and Solu-Medrol and 2 DuoNeb treatments were also given. Route to the ED. He has been feeling sick for last 3 days. Does have a history of COPD. He has been intubated in the past. . TRAVEL OUTSIDE OF THE [place] IN LAST 30 DAYS: No - Related Data Allergies/Adverse Reactions: No Known Allergies Allergy (Verified 11/30/16 14:40) Past Medical History - Social History Smoking Status: Current Every Day Smoker Frequency of alcohol use: None Drug Abuse: None Family History: CAD, COPD - Past Medical History Cardiac Medical History: Reports: Hx Hypertension - ON MEDS Denies: Hx Coronary Artery Disease, Hx Heart Attack Pulmonary Medical History: Reports: Hx Asthma - INHALERS, Hx COPD - 2L O2 @ HOME , USES BREATHING [place] & INHALERS Denies: Hx Bronchitis, Hx Pneumonia Neurological Medical History: Denies: Hx Cerebrovascular Accident, Hx Seizures Endocrine Medical History: Reports: Hx Diabetes Mellitus Type 2 - Diet controlled Renal/ Medical History: Denies: Hx Peritoneal Dialysis GI Medical History: Reports: Hx Gastroesophageal Reflux Disease, Hx Hiatal Hernia Musculoskeltal Medical History: Reports Hx Arthritis - SHOULDERS, R THUMB, L HIP Psychiatric Medical History: Denies: Hx Depression Past Surgical History: Reports: Hx Herniorrhaphy - Immunizations Hx Diphtheria, Pertussis, Tetanus Vaccination: No Hx Pneumococcal Vaccination: 11/28/15 Review of Systems - Review of Systems Notes: My Normal Review Basic REVIEW OF SYSTEMS: CONSTITUTIONAL : Fever. EENT: Denies eye, ear, throat, or mouth pain or symptoms. Denies nasal or sinus congestion. CARDIOVASCULAR: Denies chest pain. RESPIRATORY: Difficulty breathing and wheezing. GASTROINTESTINAL: Denies abdominal pain. Denies nausea, vomiting, or diarrhea. Denies constipation. Last BM: MUSCULOSKELETAL: Denies neck or back pain or joint pain or swelling. SKIN: Denies rash or skin lesions. NEUROLOGICAL: Denies altered mental status or loss of consciousness. Denies headache. Denies weakness or paralysis or loss of use of either side. Denies problems with gait or speech. Denies sensory or motor loss. ALL OTHER SYSTEMS REVIEWED AND NEGATIVE. Physical Exam - Vital signs Vitals: Pulse Ox 96 02/15/17 04:31 - Notes Notes: General Appearance: Well nourished. alert, but a little somnolent. cooperative, moderate acute distress, no obvious discomfort. Vitals: reviewed, See vital signs table. Head: no swelling or tenderness to the head Eyes: PERRL, EOMI, Conjuctiva clear Mouth: No decreasd moisture Throat: No tonsillar inflammation, No airway obstruction, No lymphadenopathy Neck: Supple, no neck tenderness Lungs: Use wheezing. Fair air exchange. Some retractions Heart: Tachycardic rate, Regular rythm, No murmur, no rub Abdomen: Normal BS, soft, No rigidity, No abdominal tenderness, No guarding, no rebound, no abdominal masses, no organomegaly Extremities: strength 5/5 in all extremities, good pulses in all extremities, no swelling or tenderness in the extremities, no edema. Skin: warm, dry, appropriate color, no rash Neuro: speech clear, oriented x 2. Alert but a little somnolent due to Versed. responds appropriately to questions. Course - Re-evaluation Re-evalutation: 02/15/17 04:43 I have placed the patient on bipap. I will give him repeat albuterol treatments. He is a little somnolent from the Versed and therefore I will ressess him very sloely and make sure he improves and does not become more somnolent. Venous blood gas will be obtained. 02/15/17 05:21 Reevaluation vision still some tightness and wheezing but he is awake and alert and conversant seems to have worn off. He is comfortable appearing but still does have some retractions and abdominal breathing. He does not have tachypnea. He has no other complaints at this time. I will give him some further breathing treatments and repeat his blood gas to make sure that his CO2 is not worsening. 02/15/17 06:25 Patient's lung levine are still a bit tight and wheezy but he is not tachypneic and he has no increase work of breathing. He is able speak in full sentences. He is still on the BiPAP. His repeat venous gas is premature unchanged from the previous one; however, clinically the patient looks improved and therefore I do not think the patient is appropriate this time. I did discuss the case with the hospitalist, Dr. Mackey, who agrees to admit the patient. - Vital Signs Vital signs: Temp Pulse Resp BP Pulse Ox 100.0 F 25 H 133/83 H 97 02/15/17 04:36 02/15/17 07:01 02/15/17 07:00 02/15/17 07:01 - Laboratory Result Diagrams: 02/15/17 04:45 02/15/17 04:45 Laboratory results interpreted by me: 02/15/17 02/15/17 02/15/17 04:45 04:45 04:45 WBC 13.4 H Seg Neutrophils % 84.6 H Lymphocytes % 7.6 L Absolute Neutrophils 11.3 H VBG pH 7.29 L VBG pCO2 65.9 H* Chloride 95 L Glucose 202 H 02/15/17 05:30 WBC Seg Neutrophils % Lymphocytes % Absolute Neutrophils VBG pH VBG pCO2 66.8 H* Chloride Glucose - EKG Interpretation by Me Additional EKG results interpreted by me: 02/15/17 04:44 EKG is reviewed and interpreted by me. EKG shows sinus tachycardia with rate of [address] segment elevation or depression. No ischemic T-wave inversions. [place] interval, QRS duration, QTc intervals are within normal range. Old EKG for comparison is from December 06, 2016. Discharge - Discharge Clinical Impression: COPD exacerbation Condition: Stable Disposition: ADMITTED INPATIENT Admitting Provider: Hospitalist Unit Admitted: [facility]
[2017-02-15 05:00] LABS: ABSOLUTE EOSINOPHILS # (AUTO) 0.3 10^3/uL (0.0-0.6); ABSOLUTE MONOCYTES (AUTO) 0.7 10^3/uL (0.1-1.4); ABSOLUTE NEUT (AUTO) 11.3 10^3/uL (1.7-8.2); BASOPHILS % (AUTO) 0.3 % (0-2); EOSINOPHILS % (AUTO) 2.5 % (0-6); HEMATOCRIT 44.7 % (37.9-51.0); HEMOGLOBIN 14.5 g/dL (13.5-17.0); LYMPHOCYTES % (AUTO) 7.6 % (13-45); MEAN CORPUSCULAR HEMOGLOBIN 29.9 pg (27.0-33.4); MEAN CORPUSCULAR HGB CONC 32.4 g/dL (32.0-36.0); MEAN CORPUSCULAR VOLUME 92 fl (80-97); PLATELET COUNT 212 10^3/uL (150-450); RED BLOOD COUNT 4.85 10^6/uL (4.35-5.55); RED CELL DISTRIBUTION WIDTH 13.4 % (11.5-14.0); SEGMENTED NEUTROPHILS % (AUTO) 84.6 % (42-78); TOTAL CELLS COUNTED % (AUTO) 100 %; WHITE BLOOD COUNT 13.4 10^3/uL (4.0-10.5)
[2017-02-15 05:08] LABS: VENOUS BLOOD BASE EXCESS 2.3 mmol/L; VENOUS BLOOD HCO3 30.6 mmol/L (20-32); VENOUS BLOOD PH 7.29 (7.30-7.42)
--- NOTE | 2017-02-15 05:08 | RADIOLOGY REPORT (SQ) ---
EXAM DESCRIPTION: CHEST SINGLE VIEW CLINICAL HISTORY: 66 years, Male, DIFF BREATHING COMPARISON: 12/06/2016. FINDINGS: Prominent interstitium, adequate lung volume, normal cardiac silhouette, mild disc desiccation and mild osteoarthritis. IMPRESSION: No acute cardiopulmonary findings. 2011 [employer]- All Rights Reserved
[2017-02-15 05:11] LABS: VENOUS BLOOD PCO2 65.9 mmHg (35-63)
[2017-02-15 05:12] LABS: ALANINE AMINOTRANSFERASE 36 U/L (21-72); ALBUMIN 4.7 g/dL (3.5-5.0); ALKALINE PHOSPHATASE 97 U/L (38-126); ANION GAP 13 (5-19); ASPARTATE AMINO TRANSFERASE 31 U/L (17-59); BILIRUBIN,DIRECT 0.3 mg/dL (0.0-0.4); BILIRUBIN,TOTAL 0.6 mg/dL (0.2-1.3); BLOOD UREA NITROGEN 10 mg/dL (7-20); CALCIUM 9.5 mg/dL (8.4-10.2); CARBON DIOXIDE 30 mmol/L (22-30); CHLORIDE 95 mmol/L (98-107); GLUCOSE 202 mg/dL (75-110); POTASSIUM 4.9 mmol/L (3.6-5.0); SODIUM 137.9 mmol/L (137-145)
[2017-02-15 05:51] LABS: VENOUS BLOOD BASE EXCESS 3.6 mmol/L; VENOUS BLOOD PH 7.3 (7.30-7.42)
[2017-02-15 05:52] LABS: VENOUS BLOOD PCO2 66.8 mmHg (35-63)
[2017-02-15 06:02] LABS: A TYPE INFLUENZA AG NEGATIVE (NEGATIVE); B INFLUENZA AG NEGATIVE (NEGATIVE)
[2017-02-15] MEDS ORDERED: CHLORPHENIRAMINE MALEATE 4 MG TABLET PO ONE (06:20)
[2017-02-15] MEDS ORDERED: IPRATROPIUM/ALBUTEROL 0.5-2.5 MG/3 ML AMPUL NEB PRN (06:20)
[2017-02-15] MEDS ORDERED: GUAIFENESIN SYRP 200 MG/10 ML UDC PO PRN (06:20)
[2017-02-15] MEDS ORDERED: ACETAMINOPHEN 325 MG TABLET PO PRN (06:20)
[2017-02-15] MEDS ORDERED: KETOROLAC TROMETHAMINE 10 MG TABLET PO PRN (06:23)
[2017-02-15] MEDS ORDERED: GLUCAGON,HUMAN RECOMB 1 MG INJ IM PRN (06:24)
[2017-02-15] MEDS ORDERED: DEXTROSE 50%-WATER 25 GM/50 ML DISP.SYRIN IV PRN ×2 (06:24)
[2017-02-15] MEDS ORDERED: DEXTROSE 40% GEL 15 GM TUBE PO PRN ×2 (06:24)
[2017-02-15] MEDS ORDERED: FLUTICASONE NASAL SPRAY 50 MCG/SPRY 120 SPRAY/16 GM NASL ONE (06:45)
[2017-02-15 06:51] LABS: CREATINE KINASE MB 1.68 ng/mL (<4.55); NT PRO BNP 92 pg/mL (5-900)
[2017-02-15 06:56] LABS: TROPONIN I < 0.012 ng/mL
--- NOTE | 2017-02-15 06:57 | PDOC H&P ---
History of Present Illness Admission Date/PCP: 02/15/17 06:40 Patient complains of: Shortness of breath History of Present Illness: RICHARD FOOTE is a 66 year old male with a past medical history of diabetes and oxygen dependent COPD with intermittent tobacco abuse. Patient presents with 2 days of increasing shortness of breath associated with rhinorrhea and sinus drainage denying sore throat he has had a subjective fever. EMS is called he is found to have tachypnea tachycardia and systolic blood pressure of 205/140 satting 80% on 2 L nasal cannula is placed on CPAP and brought to the emergency room for evaluation. Chest x-ray reveals COPD, cardiomegaly and vascular congestion. He started on BiPAP, Solu-Medrol and referred to the hospitalist for admission. Patient admits use of [id number] sinus medication otherwise compliant with medication regiment. Past Medical History Cardiac Medical History: Reports: Hypertension - ON MEDS Denies: Coronary Artery Disease, Myocardial Infarction Pulmonary Medical History: Reports: Asthma - INHALERS, Chronic Obstructive Pulmonary Disease (COPD) - 2L O2 @ HOME, USES BREATHING TX & INHALERS Denies: Bronchitis, Pneumonia Neurological Medical History: Denies: Seizures Endocrine Medical History: Reports: Diabetes Mellitus Type 2 - Diet controlled GI Medical History: Reports: Gastroesophageal Reflux Disease, Hiatal Hernia Musculoskeltal Medical History: Reports: Arthritis - SHOULDERS, R THUMB, L HIP Psychiatric Medical History: Reports: Tobacco Dependency Denies: Depression Hematology: Denies: Anemia Past Surgical History Past Surgical History: Reports: Herniorrhaphy Social History Information Source: Patient, Relative Smoking Status: Current Every Day Smoker Frequency of Alcohol Use: Rare Hx Recreational Drug Use: No Drugs: None Hx Prescription Drug Abuse: No - Advance Directive Resuscitation Status: Full Code Family History Family History: CAD, COPD Parental Family History Reviewed: Yes Children Family History Reviewed: Yes Sibling(s) Family History Reviewed.: Yes Medication/Allergy Home Medications: Cetirizine HCl [Zyrtec 10 mg Tablet] 10 mg PO DAILY 07/05/16 Diclofenac Sodium [Voltaren] 1 applic TP QID PRN 07/05/16 Ergocalciferol (Vitamin D2) [Vitamin D2] 50,000 unit PO Q7D 07/05/16 Fluticasone Propionate [Flonase Nasal [place] 50 Mcg/[place] 16 gm] 2 sprays NAREB DAILY 07/05/16 Glimepiride [Amaryl] 2 mg PO DAILY 07/05/16 Ipratropium/Albuterol Sulfate [Duoneb 3 ml Ampul] 3 ml NEB RTQID 07/05/16 Losartan Potassium [Cozaar 25 mg Tablet] 25 mg PO DAILY 07/05/16 Metformin HCl [Glucophage] 1,000 mg PO BIDACBS 07/05/16 Montelukast Sodium [Singulair 10 mg Tablet] 10 mg PO QHS 07/05/16 Omeprazole 40 mg PO DAILY 07/05/16 Budesonide/Formoterol Fumarate [Symbicort Hfa 160-4.5 Mcg Inhaler 6 gm] 2 puff IH Q12 11/30/16 Cyanocobalamin (Vitamin B-12) [Vitamin B12] 5,000 mcg PO DAILY 11/30/16 Atorvastatin Calcium [Lipitor 10 mg Tablet] 10 mg PO QHS 12/06/16 Budesonide [Pulmicort Neb 0.5 mg/2 ml Ampul] 0.5 mg NEB RTQ12 12/06/16 Magnesium Oxide [Mag-Ox 400 mg Tablet] 200 mg PO DAILY 12/06/16 Ketorolac Tromethamine [Toradol 10 mg Tablet] 10 mg PO Q6HP PRN #25 tablet 12/12 Allergies/Adverse Reactions: No Known Allergies Allergy (Verified 11/30/16 14:40) Review of Systems Constitutional: ABSENT: chills, fever(s), headache(s), weight gain, weight loss Eyes: ABSENT: visual disturbances Ears: ABSENT: hearing changes Cardiovascular: ABSENT: chest pain, dyspnea on exertion, edema, orthropnea, palpitations Respiratory: ABSENT: cough, hemoptysis Gastrointestinal: ABSENT: abdominal pain, constipation, diarrhea, hematemesis, hematochezia, nausea, vomiting Genitourinary: ABSENT: dysuria, hematuria Musculoskeletal: ABSENT: joint swelling Integumentary: ABSENT: rash, wounds Neurological: ABSENT: abnormal gait, abnormal speech, confusion, dizziness, focal weakness, syncope Psychiatric: ABSENT: anxiety, depression, homidical ideation, suicidal ideation Endocrine: ABSENT: cold intolerance, heat intolerance, polydipsia, polyuria Hematologic/Lymphatic: ABSENT: easy bleeding, easy bruising Physical Exam Vital Signs: Temp Pulse Resp BP Pulse Ox 100.0 F 25 H 122/83 95 02/15/17 04:36 01/05/18 06:01 02/15/17 06:00 02/15/17 05:03 General appearance: PRESENT: cooperative, severe distress Head exam: PRESENT: atraumatic, normocephalic Eye exam: PRESENT: conjunctiva pink, EOMI, PERRLA. ABSENT: scleral icterus Ear exam: PRESENT: normal external ear exam Mouth exam: PRESENT: moist, tongue midline Neck exam: ABSENT: carotid bruit, JVD, lymphadenopathy, thyromegaly Respiratory exam: PRESENT: accessory muscle use, crackles, prolonged expiratory phas, rales, retraction, symmetrical, tachypnea. ABSENT: stridor Cardiovascular exam: PRESENT: RRR, +S1, +S2, tachycardia Pulses: PRESENT: normal dorsalis pedis pul Vascular exam: PRESENT: normal capillary refill GI/Abdominal exam: PRESENT: normal bowel sounds, soft. ABSENT: distended, guarding, mass, organolmegaly, rebound, tenderness Rectal exam: PRESENT: deferred Extremities exam: PRESENT: full ROM. ABSENT: calf tenderness, clubbing, pedal edema Neurological exam: PRESENT: alert, awake, oriented to person, oriented to place , oriented to time, oriented to situation, CN II-XII grossly intact. ABSENT: motor sensory deficit Psychiatric exam: PRESENT: appropriate affect, normal mood. ABSENT: homicidal ideation, suicidal ideation Skin exam: PRESENT: dry, intact, warm. ABSENT: cyanosis, rash Results Impressions: Chest X-Ray 02/15/17 00:00 IMPRESSION: No acute cardiopulmonary findings. 2010 [facility] [employer]- All Rights Reserved Assessment & Plan - Diagnosis (1) COPD exacerbation Is this a current diagnosis for this admission?: Yes Plan: With hypercapnia and hypoxia, complicated by tobacco and sinusitis. He is placed on BiPAP at 50%, Solu-Medrol and empiric antibiotics (2) Hypertensive urgency Plan: Concern for contributing factor of respiratory distress. BNP pending hydralazine and diuretics ordered (3) Diabetes 1.5, managed as type 2 Is this a current diagnosis for this admission?: Yes Plan: Complicated by steroids, home regiment minus metformin. Sliding scale ordered (4) Maxillary sinusitis, acute Qualifiers: Is this a current diagnosis for this admission?: Yes Plan: Flonase, chlorpheniramine and antibiotics ordered (5) Tobacco dependency Is this a current diagnosis for this admission?: Yes Plan: Tobacco Dependence patient received tobacco cessation counseling and offered nicotine replacement options - Time Time Spent: 50 to 70 Minutes - Inpatient Certification Medical Necessity: Need Close Monitoring Due to Risk of Patient Decompensation
[2017-02-15] MEDS ORDERED: HYDRALAZINE HCL INJ/PF 20 MG/1 ML SDV IV PRN (06:58)
[2017-02-15] MEDS ORDERED: FUROSEMIDE INJ/PF 40 MG/4 ML SDV IV ONE (06:58)
[2017-02-15] MEDS ORDERED: DILTIAZEM HCL 30 MG TABLET PO ONE (07:00)
[2017-02-15] MEDS ORDERED: LEVOFLOXACIN 750 MG/D5W RTU 750 MG/150 ML RTUPB IV ONE (07:00)
[2017-02-15] MEDS: IPRATROPIUM/ALBUTEROL 0.5-2.5 MG/3 ML AMPUL NEB SCH ×3 (08:29→18:55)
[2017-02-15 09:00] LABS: URINE AMPHETAMINES SCREEN NEGATIVE; URINE BARBITURATES SCREEN NEGATIVE; URINE BENZODIAZEPINES SCREEN UNCONFIRMED POSITIVE; URINE COCAINE SCREEN NEGATIVE; URINE MARIJUANA (THC) SCREEN NEGATIVE; URINE METHADONE SCREEN NEGATIVE; URINE PHENCYCLIDINE SCREEN NEGATIVE
--- NOTE | 2017-02-15 09:16 | EKG REPORT ---
SEVERITY:- OTHERWISE NORMAL ECG - SINUS TACHYCARDIA BORDERLINE LEFT AXIS DEVIATION : Confirmed by: Maria Elena Patricio 15-Feb-2017 09:16:29
[2017-02-15] MEDS ORDERED: LORAZEPAM INJ 2 MG/1 ML VIAL IV ONE (09:22)
[2017-02-15 09:28] LABS: ARTERIAL BLOOD BASE EXCESS 5.8 mmol/L; ARTERIAL BLOOD H2CO3 2.04 mmol/L (1.05-1.35); ARTERIAL BLOOD HCO3 34.4 mmol/L (20-26); ARTERIAL BLOOD O2 SATURATION 97.4 % (94-98); ARTERIAL BLOOD PCO2 67.7 mmHg (35-45); ARTERIAL BLOOD PH 7.32 (7.35-7.45); ARTERIAL BLOOD PO2 106.9 mmHg (80-100); ARTERIAL BLOOD TOTAL CO2 36.5 mmol/L (23-27)
[2017-02-15 09:29] LABS: ARTERIAL BLOOD FIO2 40%
[2017-02-15] MEDS ORDERED: PREDNISONE 20 MG TABLET PO SCH (10:00)
[2017-02-15] MEDS: MAGNESIUM OXIDE 400 MG TABLET PO SCH (10:23)
[2017-02-15] MEDS: GUAIFENESIN 600 MG TABLET.SA PO SCH ×2 (10:24→21:56)
[2017-02-15] MEDS: LOSARTAN POTASSIUM 25 MG TABLET PO SCH (10:24)
[2017-02-15] MEDS: GLIMEPIRIDE 4 MG TABLET PO SCH (10:25)
[2017-02-15] MEDS: LANSOPRAZOLE 30 MG TAB.RAP.DR PO SCH (10:25)
[2017-02-15 11:00] LABS: VENOUS BLOOD BASE EXCESS 3.6 mmol/L; VENOUS BLOOD HCO3 32.2 mmol/L (20-32); VENOUS BLOOD PH 7.3 (7.30-7.42)
[2017-02-15 11:05] LABS: VENOUS BLOOD PCO2 66.4 mmHg (35-63)
[2017-02-15] MEDS: DILTIAZEM HCL 30 MG TABLET PO SCH ×2 (11:48→19:10)
--- NOTE | 2017-02-15 12:58 | PDOC PROGRESS REPORT ---
Subjective Progress Note for:: 02/15/17 Subjective:: The patient is seen on morning rounds for a follow-up of his COPD. I was called by nursing staff to report that the patient was experiencing worsening respiratory symptoms. He is found sitting on the edge of the bed in the tripod position with accessory muscle use and retractions while on BiPAP. Respiratory is at bedside and making adjustments to BiPAP ;the patient reports that there is slight improvement following these adjustments. He does confirm that he is a full code and would wish to be intubated if his condition worsens. Reason For Visit: COPD EXACERBATION, ACUTE BRONCHITIS Physical Exam Vital Signs: Temp Pulse Resp BP Pulse Ox 99.2 F 94 21 H 122/91 H 99 02/15/17 09:27 02/15/17 08:29 02/15/17 08:29 02/15/17 12:06 02/15/17 12:06 Intake & Output 02/14/17 02/15/17 02/16/17 06:59 06:59 06:59 Intake Total 240 Balance 240 General appearance: PRESENT: mild distress, well-developed, well-nourished Head exam: PRESENT: atraumatic, normocephalic Eye exam: PRESENT: conjunctiva pink, EOMI, PERRLA. ABSENT: scleral icterus Ear exam: PRESENT: normal external ear exam Mouth exam: PRESENT: moist, tongue midline Neck exam: ABSENT: carotid bruit, JVD, lymphadenopathy, thyromegaly Respiratory exam: PRESENT: accessory muscle use, prolonged expiratory phas, retraction, rhonchi, tachypnea, wheezes, other - On BiPAP; 16/6 FiO2 40%. ABSENT: rales Cardiovascular exam: PRESENT: RRR, +S1, +S2, tachycardia. ABSENT: diastolic murmur, rubs, systolic murmur Pulses: PRESENT: normal dorsalis pedis pul Vascular exam: PRESENT: normal capillary refill GI/Abdominal exam: PRESENT: normal bowel sounds, soft. ABSENT: distended, guarding, mass, organolmegaly, rebound, tenderness Rectal exam: PRESENT: deferred Extremities exam: PRESENT: full ROM. ABSENT: calf tenderness, clubbing, pedal edema Neurological exam: PRESENT: alert, awake, oriented to person, oriented to place , oriented to time, oriented to situation, CN II-XII grossly intact. ABSENT: motor sensory deficit Psychiatric exam: PRESENT: anxious, appropriate affect, normal mood. ABSENT: homicidal ideation, suicidal ideation Skin exam: PRESENT: dry, intact, warm. ABSENT: cyanosis, rash Results Laboratory Results: 02/15/17 02/15/17 09:00 10:52 Carbonic Acid 2.04 H HCO3/H2CO3 Ratio 16:1 ABG pH 7.32 L ABG pCO2 67.7 H ABG pO2 106.9 H ABG HCO3 34.4 H ABG O2 Saturation 97.4 ABG Base Excess 5.8 VBG pH 7.30 VBG pCO2 66.4 H* VBG HCO3 32.2 H VBG Base Excess 3.6 FiO2 40% Impressions: Chest X-Ray 02/15/17 00:00 IMPRESSION: No acute cardiopulmonary findings. 2010 [employer]- All Rights Reserved Assessment & Plan - Diagnosis (1) Acute respiratory failure with hypoxia and hypercapnia Is this a current diagnosis for this admission?: Yes Plan: The patient will be admitted to [facility] on continuous cardiac telemetry. He is currently on BiPAP; will continue supplemental oxygen as needed to keep O2 sats greater than 88%. ABG obtained and revealed uncompensated respiratory acidosis. Will monitor closely for evidence of further decline and intubate as necessary. The patient is provided IV Solu-Medrol every 8 hours, duo nebs scheduled and Xopenex as needed. He is provided Mucinex twice daily and Robitussin cough syrup. He has been placed on Singulair and Flonase. (2) COPD exacerbation Is this a current diagnosis for this admission?: Yes Plan: Complicated by continued tobacco use and recent URI symptoms. Blood cultures are pending. Empirically started on Levaquin. He is provided Flonase and Singulair. Remaining plan as above. (3) Hypertensive urgency Is this a current diagnosis for this admission?: Yes Plan: Blood pressures are better controlled. BNP was within normal limits. Continue the patient's home medication regimen with IV hydralazine as needed. (4) Diabetes 1.5, managed as type 2 Is this a current diagnosis for this admission?: Yes Plan: The patient was placed on a cardiac and consistent carb diet. Continue his home dose Amaryl. Hold metformin. Accu-Cheks before meals and at bedtime with Humalog for sliding scale coverage. (5) GERD (gastroesophageal reflux disease) Plan: Continue PPI. (6) Maxillary sinusitis, acute Qualifiers: Is this a current diagnosis for this admission?: Yes Plan: Plan as above. (7) Tobacco dependency Is this a current diagnosis for this admission?: Yes Plan: Smoking cessation is encouraged and nicotine replacement therapies are offered. - Time Time Spent with patient: 35 or more minutes Medications reviewed and adjusted accordingly: Yes - Inpatient Certification Based on my medical assessment, after consideration of the patient's comorbidities, presenting symptoms, or acuity I expect that the services needed warrant INPATIENT care.: Yes I certify that my determination is in accordance with my understanding of Medicare's requirements for reasonable and necessary INPATIENT services [42 CFR 412.3e].: Yes Medical Necessity: Need Close Monitoring Due to Risk of Patient Decompensation, Need For Continuous Telemetry Monitoring, Need for Nebulizer Therapy and Monitoring of Response, Risk of Complication if Not Cared For in Hospital
[2017-02-15] MEDS: METHYLPREDNISOLONE INJ 40 MG/1 ML SDV IV SCH ×2 (15:03→21:56)
[2017-02-15] MEDS: HEPARIN SOD (PORCINE) 5,000 UNIT/ML 1 ML SYRINGE SUBCUT SCH ×2 (15:05→21:56)
[2017-02-15] MEDS: ATORVASTATIN CALCIUM 10 MG TABLET PO SCH (21:57)
[2017-02-15] MEDS: MONTELUKAST SODIUM 10 MG TABLET PO SCH (21:57)
[2017-02-15] MEDS: FLUTICASONE NASAL SPRAY 50 MCG/SPRY 120 SPRAY/16 GM NASL SCH (21:58)
[2017-02-15] MEDS ORDERED: MONTELUKAST SODIUM 10 MG TABLET PO SCH (22:00)
[2017-02-15] MEDS ORDERED: ATORVASTATIN CALCIUM 10 MG TABLET PO SCH (22:00)
[2017-02-15] MEDS: INSULIN LISPRO 100 UNIT/ML 3 ML VIAL SUBCUT PRN (22:44)
[2017-02-16] MEDS: DILTIAZEM HCL 30 MG TABLET PO SCH ×5 (00:51→23:51)
[2017-02-16] MEDS: IPRATROPIUM/ALBUTEROL 0.5-2.5 MG/3 ML AMPUL NEB SCH ×4 (02:15→20:35)
[2017-02-16] MEDS: LEVALBUTEROL HCL NEB 1.25 MG/3 ML AMPUL NEB PRN ×2 (04:26→17:49)
[2017-02-16 05:11] LABS: ABSOLUTE LYMPHOCYTES (AUTO) 0.9 10^3/uL (0.5-4.7); ABSOLUTE MONOCYTES (AUTO) 0.5 10^3/uL (0.1-1.4); ABSOLUTE NEUT (AUTO) 11.9 10^3/uL (1.7-8.2); BASOPHILS % (AUTO) 0.3 % (0-2); HEMATOCRIT 43.1 % (37.9-51.0); HEMOGLOBIN 13.8 g/dL (13.5-17.0); LYMPHOCYTES % (AUTO) 6.4 % (13-45); MEAN CORPUSCULAR HEMOGLOBIN 29.7 pg (27.0-33.4); MEAN CORPUSCULAR VOLUME 93 fl (80-97); MONOCYTES % (AUTO) 3.8 % (3-13); PLATELET COUNT 201 10^3/uL (150-450); RED BLOOD COUNT 4.65 10^6/uL (4.35-5.55); RED CELL DISTRIBUTION WIDTH 13.4 % (11.5-14.0); SEGMENTED NEUTROPHILS % (AUTO) 89.5 % (42-78); TOTAL CELLS COUNTED % (AUTO) 100 %; WHITE BLOOD COUNT 13.3 10^3/uL (4.0-10.5)
[2017-02-16] MEDS: METHYLPREDNISOLONE INJ 40 MG/1 ML SDV IV SCH ×3 (05:27→21:54)
[2017-02-16] MEDS: HEPARIN SOD (PORCINE) 5,000 UNIT/ML 1 ML SYRINGE SUBCUT SCH ×3 (05:27→21:55)
[2017-02-16 05:30] LABS: ANION GAP 7 (5-19); CALCIUM 9.2 mg/dL (8.4-10.2); CARBON DIOXIDE 39 mmol/L (22-30); CHLORIDE 91 mmol/L (98-107); GLUCOSE 178 mg/dL (75-110); POTASSIUM 5.2 mmol/L (3.6-5.0); SODIUM 137.4 mmol/L (137-145)
[2017-02-16 05:46] LABS: BLOOD UREA NITROGEN 33 mg/dL (7-20)
[2017-02-16] MEDS: LEVOFLOXACIN 750 MG/D5W RTU 750 MG/150 ML RTUPB IV SCH (09:59)
[2017-02-16] MEDS: LANSOPRAZOLE 30 MG TAB.RAP.DR PO SCH (09:59)
[2017-02-16] MEDS: GUAIFENESIN 600 MG TABLET.SA PO SCH ×2 (09:59→21:54)
[2017-02-16] MEDS: GLIMEPIRIDE 4 MG TABLET PO SCH (09:59)
[2017-02-16] MEDS: LOSARTAN POTASSIUM 25 MG TABLET PO SCH (10:00)
[2017-02-16] MEDS: MAGNESIUM OXIDE 400 MG TABLET PO SCH (10:00)
[2017-02-16] MEDS ORDERED: LOSARTAN POTASSIUM 25 MG TABLET PO SCH (10:00)
[2017-02-16] MEDS: FLUTICASONE NASAL SPRAY 50 MCG/SPRY 120 SPRAY/16 GM NASL SCH ×2 (10:01→21:54)
--- NOTE | 2017-02-16 11:39 | PDOC PROGRESS REPORT ---
Subjective Progress Note for:: 02/16/17 Subjective:: The patient is seen on morning rounds for a follow-up of his COPD. The patient is seen sitting upright in bed breathing comfortably on 4 L of supplemental oxygen via nasal cannula. The patient tells me that he normally wears 2 L at home. Reports a frequent productive cough of thick green sputum. He does state that his breathing has improved and that he is feeling much at ease. He is continuing to have audible wheezing. Overall, he states that he is feeling much better and is hopeful to be discharged within the next day or two. Reason For Visit: COPD EXACERBATION, ACUTE BRONCHITIS Physical Exam Vital Signs: Temp Pulse Resp BP Pulse Ox 97.9 F 87 32 H 94/70 L 98 02/16/17 07:56 02/16/17 08:47 02/16/17 08:47 02/16/17 07:56 02/16/17 08:47 Intake & Output 02/15/17 02/16/17 02/17/17 06:59 06:59 06:59 Intake Total 453 Balance 453 Weight 88.9 kg General appearance: PRESENT: no acute distress, well-developed, well-nourished Head exam: PRESENT: atraumatic, normocephalic Eye exam: PRESENT: conjunctiva pink, EOMI, PERRLA. ABSENT: scleral icterus Ear exam: PRESENT: normal external ear exam Mouth exam: PRESENT: moist, tongue midline Neck exam: ABSENT: carotid bruit, JVD, lymphadenopathy, thyromegaly Respiratory exam: PRESENT: rhonchi, symmetrical, unlabored, wheezes, other - Supplemental oxygen via nasal cannula at 4 L/min. ABSENT: rales Cardiovascular exam: PRESENT: RRR, +S1, +S2. ABSENT: diastolic murmur, rubs, systolic murmur Pulses: PRESENT: normal dorsalis pedis pul Vascular exam: PRESENT: normal capillary refill GI/Abdominal exam: PRESENT: normal bowel sounds, soft. ABSENT: distended, guarding, mass, organolmegaly, rebound, tenderness Rectal exam: PRESENT: deferred Extremities exam: PRESENT: full ROM. ABSENT: calf tenderness, clubbing, pedal edema Neurological exam: PRESENT: alert, awake, oriented to person, oriented to place , oriented to time, oriented to situation, CN II-XII grossly intact. ABSENT: motor sensory deficit Psychiatric exam: PRESENT: appropriate affect, normal mood. ABSENT: homicidal ideation, suicidal ideation Skin exam: PRESENT: dry, intact, warm. ABSENT: cyanosis, rash Results Laboratory Results: 02/16/17 04:41 02/16/17 04:41 02/16/17 02/16/17 04:41 04:41 WBC 13.3 H RBC 4.65 Hgb 13.8 Hct 43.1 MCV 93 MCH 29.7 MCHC 32.0 RDW 13.4 Plt Count 201 Seg Neutrophils % 89.5 H Lymphocytes % 6.4 L Monocytes % 3.8 Eosinophils % 0.0 Basophils % 0.3 Absolute Neutrophils 11.9 H Absolute Lymphocytes 0.9 Absolute Monocytes 0.5 Absolute Eosinophils 0.0 Absolute Basophils 0.0 Sodium 137.4 Potassium 5.2 H Chloride 91 L Carbon Dioxide 39 H Anion Gap 7 BUN 33 H D Creatinine 1.19 Est GFR ( Amer) > 60 Est GFR (Non-Af Amer) > 60 Glucose 178 H Calcium 9.2 Impressions: Chest X-Ray 02/15/17 00:00 IMPRESSION: No acute cardiopulmonary findings. 2010 [employer]- All Rights Reserved Assessment & Plan - Diagnosis (1) Acute respiratory failure with hypoxia and hypercapnia Is this a current diagnosis for this admission?: Yes Plan: The patient is admitted to [facility] on continuous cardiac telemetry. ABG obtained and revealed uncompensated respiratory acidosis. Will monitor closely for evidence of further decline and intubate as necessary. Will continue supplemental oxygen as needed to keep O2 sats greater than 88%. BiPAP as needed. The patient is provided IV Solu-Medrol every 8 hours, duo nebs scheduled and Xopenex as needed. He is provided Mucinex twice daily and Robitussin cough syrup. He has been placed on Singulair and Flonase. (2) COPD exacerbation Is this a current diagnosis for this admission?: Yes Plan: Complicated by continued tobacco use and recent URI symptoms. Blood cultures: No growth at 24 hours Empirically started on Levaquin. He is provided Flonase and Singulair. Remaining plan as above. (3) Hypertensive urgency Is this a current diagnosis for this admission?: Yes Plan: Blood pressures are better controlled. BNP was within normal limits. Continue the patient's home medication regimen with IV hydralazine as needed. (4) Diabetes 1.5, managed as type 2 Is this a current diagnosis for this admission?: Yes Plan: The patient was placed on a cardiac and consistent carb diet. Continue his home dose Amaryl. Hold metformin. Accu-Cheks before meals and at bedtime with Humalog for sliding scale coverage. (5) GERD (gastroesophageal reflux disease) Plan: Continue PPI. (6) Maxillary sinusitis, acute Qualifiers: Is this a current diagnosis for this admission?: Yes Plan: Plan as above. (7) Tobacco dependency Is this a current diagnosis for this admission?: Yes Plan: Smoking cessation is encouraged and nicotine replacement therapies are offered. - Time Time Spent with patient: 25-34 minutes Medications reviewed and adjusted accordingly: Yes
[2017-02-16] MEDS ORDERED: SODIUM POLYSTYRENE SULFONATE 15 GM/60 ML PO ONE (12:00)
[2017-02-16] MEDS: ATORVASTATIN CALCIUM 10 MG TABLET PO SCH (21:54)
[2017-02-16] MEDS: MONTELUKAST SODIUM 10 MG TABLET PO SCH (21:54)
[2017-02-17] MEDS: IPRATROPIUM/ALBUTEROL 0.5-2.5 MG/3 ML AMPUL NEB SCH ×4 (02:41→20:06)
[2017-02-17 04:56] LABS: HEMATOCRIT 40.8 % (37.9-51.0); HEMOGLOBIN 13.3 g/dL (13.5-17.0); MEAN CORPUSCULAR HEMOGLOBIN 29.6 pg (27.0-33.4); MEAN CORPUSCULAR HGB CONC 32.5 g/dL (32.0-36.0); MEAN CORPUSCULAR VOLUME 91 fl (80-97); PLATELET COUNT 208 10^3/uL (150-450); RED BLOOD COUNT 4.49 10^6/uL (4.35-5.55); RED CELL DISTRIBUTION WIDTH 13.4 % (11.5-14.0); WHITE BLOOD COUNT 16.7 10^3/uL (4.0-10.5)
[2017-02-17 05:20] LABS: ANION GAP 11 (5-19); BLOOD UREA NITROGEN 43 mg/dL (7-20); CALCIUM 9.2 mg/dL (8.4-10.2); CARBON DIOXIDE 33 mmol/L (22-30); CHLORIDE 91 mmol/L (98-107); GLUCOSE 189 mg/dL (75-110)
[2017-02-17] MEDS: HEPARIN SOD (PORCINE) 5,000 UNIT/ML 1 ML SYRINGE SUBCUT SCH ×3 (05:54→21:42)
[2017-02-17] MEDS: METHYLPREDNISOLONE INJ 40 MG/1 ML SDV IV SCH ×3 (05:54→21:42)
[2017-02-17] MEDS: DILTIAZEM HCL 30 MG TABLET PO SCH ×3 (05:56→17:35)
[2017-02-17] MEDS: LOSARTAN POTASSIUM 25 MG TABLET PO SCH (10:08)
[2017-02-17] MEDS: LEVOFLOXACIN 750 MG/D5W RTU 750 MG/150 ML RTUPB IV SCH (10:08)
[2017-02-17] MEDS: GUAIFENESIN 600 MG TABLET.SA PO SCH ×2 (10:09→21:42)
[2017-02-17] MEDS: GLIMEPIRIDE 4 MG TABLET PO SCH (10:09)
[2017-02-17] MEDS: MAGNESIUM OXIDE 400 MG TABLET PO SCH (10:09)
[2017-02-17] MEDS: LANSOPRAZOLE 30 MG TAB.RAP.DR PO SCH (10:09)
[2017-02-17] MEDS: FLUTICASONE NASAL SPRAY 50 MCG/SPRY 120 SPRAY/16 GM NASL SCH ×2 (10:10→21:42)
[2017-02-17] MEDS: MONTELUKAST SODIUM 10 MG TABLET PO SCH (21:42)
[2017-02-17] MEDS: ATORVASTATIN CALCIUM 10 MG TABLET PO SCH (21:42)
[2017-02-18] MEDS: DILTIAZEM HCL 30 MG TABLET PO SCH ×5 (00:31→23:45)
[2017-02-18] MEDS: IPRATROPIUM/ALBUTEROL 0.5-2.5 MG/3 ML AMPUL NEB SCH ×5 (01:59→20:37)
[2017-02-18] MEDS: METHYLPREDNISOLONE INJ 40 MG/1 ML SDV IV SCH ×3 (05:39→22:10)
[2017-02-18] MEDS: HEPARIN SOD (PORCINE) 5,000 UNIT/ML 1 ML SYRINGE SUBCUT SCH ×3 (05:39→22:09)
[2017-02-18] MEDS: LEVOFLOXACIN 750 MG/D5W RTU 750 MG/150 ML RTUPB IV SCH (08:10)
[2017-02-18 08:21] LABS: HEMATOCRIT 44.2 % (37.9-51.0); HEMOGLOBIN 14.2 g/dL (13.5-17.0); MEAN CORPUSCULAR HEMOGLOBIN 29.5 pg (27.0-33.4); MEAN CORPUSCULAR VOLUME 92 fl (80-97); PLATELET COUNT 231 10^3/uL (150-450); RED BLOOD COUNT 4.81 10^6/uL (4.35-5.55); RED CELL DISTRIBUTION WIDTH 13.5 % (11.5-14.0); WHITE BLOOD COUNT 13.2 10^3/uL (4.0-10.5)
[2017-02-18 08:34] LABS: ANION GAP 7 (5-19); BLOOD UREA NITROGEN 28 mg/dL (7-20); CALCIUM 9.4 mg/dL (8.4-10.2); CHLORIDE 93 mmol/L (98-107); GLUCOSE 136 mg/dL (75-110); POTASSIUM 4.9 mmol/L (3.6-5.0); SODIUM 139.9 mmol/L (137-145)
[2017-02-18 08:49] LABS: CARBON DIOXIDE 40 mmol/L (22-30)
[2017-02-18] MEDS ORDERED: LORAZEPAM INJ 2 MG/1 ML VIAL IV ONE (09:10)
[2017-02-18] MEDS: GUAIFENESIN 600 MG TABLET.SA PO SCH ×2 (09:21→22:17)
[2017-02-18] MEDS: GLIMEPIRIDE 4 MG TABLET PO SCH (09:22)
[2017-02-18] MEDS: LOSARTAN POTASSIUM 25 MG TABLET PO SCH (09:22)
[2017-02-18] MEDS: MAGNESIUM OXIDE 400 MG TABLET PO SCH (09:22)
[2017-02-18] MEDS: LANSOPRAZOLE 30 MG TAB.RAP.DR PO SCH (09:24)
[2017-02-18] MEDS: FLUTICASONE NASAL SPRAY 50 MCG/SPRY 120 SPRAY/16 GM NASL SCH ×2 (09:24→22:10)
[2017-02-18] MEDS ORDERED: HYDROCORTISONE SOD SUCCINATE INJ/PF 100 MG/2 ML SDV ONE (09:29)
[2017-02-18] MEDS ORDERED: METHYLPREDNISOLONE INJ 125 MG/2 ML SDV IV ONE (09:31)
[2017-02-18] MEDS: LEVALBUTEROL HCL NEB 1.25 MG/3 ML AMPUL NEB PRN (09:34)
[2017-02-18] MEDS ORDERED: IPRATROPIUM/ALBUTEROL 0.5-2.5 MG/3 ML AMPUL NEB ONE (09:42)
[2017-02-18] MEDS: NICOTINE 14 MG/24 HR PATCH.TD24 TD SCH (11:35)
--- NOTE | 2017-02-18 11:42 | PDOC PROGRESS REPORT ---
Subjective Progress Note for:: 02/17/17 Subjective:: The patient is seen on morning rounds for a follow-up of his COPD. The patient is seen sitting upright in bed breathing comfortably on 4 L of supplemental oxygen via nasal cannula while eating his breakfast; the patient is to dependent at home. TReports a frequent productive cough of thick green sputum. He does state that his breathing has improved and that he is feeling better, however, states that he is concerned that he may continue to require the higher steroids because he frequently has audible wheezing prior to his next scheduled DuoNeb treatment. Overall, he states that he is feeling much better and is hopeful to be discharged within the next day or two. Reason For Visit: COPD EXACERBATION, ACUTE BRONCHITIS Physical Exam Vital Signs: Temp Pulse Resp BP Pulse Ox 97.9 F 119 H 18 133/85 H 99 02/18/17 07:43 02/18/17 11:26 02/18/17 11:26 02/18/17 07:43 02/18/17 11:26 Intake & Output 02/17/17 02/18/17 02/19/17 06:59 06:59 06:59 Intake Total 2506 829 Output Total 200 Balance 2306 829 Weight 90.4 kg 90.7 kg General appearance: PRESENT: no acute distress, well-developed, well-nourished Head exam: PRESENT: atraumatic, normocephalic Eye exam: PRESENT: conjunctiva pink, EOMI, PERRLA. ABSENT: scleral icterus Ear exam: PRESENT: normal external ear exam Mouth exam: PRESENT: moist, tongue midline Neck exam: ABSENT: carotid bruit, JVD, lymphadenopathy, thyromegaly Respiratory exam: PRESENT: prolonged expiratory phas, symmetrical, unlabored, wheezes - throughout. ABSENT: rales, rhonchi Cardiovascular exam: PRESENT: RRR. ABSENT: diastolic murmur, rubs, systolic murmur Pulses: PRESENT: normal dorsalis pedis pul Vascular exam: PRESENT: normal capillary refill GI/Abdominal exam: PRESENT: normal bowel sounds, soft. ABSENT: distended, guarding, mass, organolmegaly, rebound, tenderness Rectal exam: PRESENT: deferred Extremities exam: PRESENT: full ROM. ABSENT: calf tenderness, clubbing, pedal edema Neurological exam: PRESENT: alert, awake, oriented to person, oriented to place , oriented to time, oriented to situation, CN II-XII grossly intact. ABSENT: motor sensory deficit Psychiatric exam: PRESENT: appropriate affect, normal mood. ABSENT: homicidal ideation, suicidal ideation Skin exam: PRESENT: dry, intact, warm. ABSENT: cyanosis, rash Results Laboratory Results: 02/18/17 07:59 02/18/17 07:59 02/18/17 02/18/17 02/18/17 07:59 07:59 07:59 WBC 13.2 H RBC 4.81 Hgb 14.2 Hct 44.2 MCV 92 MCH 29.5 MCHC 32.0 RDW 13.5 Plt Count 231 Sodium 139.9 Potassium 4.9 Chloride 93 L Carbon Dioxide 40 H* Anion Gap 7 BUN 28 H Creatinine 0.91 Est GFR ( Amer) > 60 Est GFR (Non-Af Amer) > 60 Glucose 136 H Calcium 9.4 Magnesium 2.9 H 02/18/17 07:59 NT-Pro-B Natriuret Pep 76 Assessment & Plan - Diagnosis (1) Acute respiratory failure with hypoxia and hypercapnia Is this a current diagnosis for this admission?: Yes Plan: The patient is admitted to [facility] on continuous cardiac telemetry. ABG obtained and revealed uncompensated respiratory acidosis. Will monitor closely for evidence of further decline and intubate as necessary. Will continue supplemental oxygen as needed to keep O2 sats greater than 88%. BiPAP as needed. The patient is provided IV Solu-Medrol every 8 hours, duo nebs scheduled and Xopenex as needed. He is provided Mucinex twice daily and Robitussin cough syrup. He has been placed on Singulair and Flonase. The patient is established with Dr. Castellanos who is consulted at the patient's request today. (2) COPD exacerbation Is this a current diagnosis for this admission?: Yes Plan: Complicated by continued tobacco use and recent URI symptoms. Blood cultures: No growth at 48 hours Empirically started on Levaquin. He is provided Flonase and Singulair. Remaining plan as above. (3) Hypertensive urgency Is this a current diagnosis for this admission?: Yes Plan: Blood pressures are better controlled. BNP was within normal limits. Continue the patient's home medication regimen with IV hydralazine as needed. (4) Diabetes 1.5, managed as type 2 Is this a current diagnosis for this admission?: Yes Plan: The patient was placed on a cardiac and consistent carb diet. Continue his home dose Amaryl. Hold metformin. Accu-Cheks before meals and at bedtime with Humalog for sliding scale coverage. (5) GERD (gastroesophageal reflux disease) Plan: Continue PPI. (6) Maxillary sinusitis, acute Qualifiers: Is this a current diagnosis for this admission?: Yes Plan: Plan as above. (7) Tobacco dependency Is this a current diagnosis for this admission?: Yes Plan: Smoking cessation is encouraged and nicotine replacement therapies are offered. - Time Time Spent with patient: 15-24 minutes Medications reviewed and adjusted accordingly: Yes Anticipated discharge: Home
--- NOTE | 2017-02-18 11:51 | PDOC PROGRESS REPORT ---
<OLLIE HERRERA - Last Filed: 02/18/17 11:41> Subjective Progress Note for:: 02/18/17 Subjective:: The patient is seen on morning rounds. He is sitting up on the edge of the bed in tripod position. He is currently wearing supplemental oxygen via nasal cannula at 4 L/min. He is noted to have accessory muscle use with retractions. He states that his breathing has progressively worsened overnight and that his chest feels tight. Reason For Visit: COPD EXACERBATION, ACUTE BRONCHITIS Physical Exam Vital Signs: Temp Pulse Resp BP Pulse Ox 97.9 F 119 H 18 133/85 H 99 02/18/17 07:43 02/18/17 11:26 02/18/17 11:26 02/18/17 07:43 02/18/17 11:26 Intake & Output 02/17/17 02/18/17 02/19/17 06:59 06:59 06:59 Intake Total 2506 829 Output Total 200 Balance 2306 829 Weight 90.4 kg 90.7 kg General appearance: PRESENT: no acute distress, well-developed, well-nourished, other - Overweight Head exam: PRESENT: atraumatic, normocephalic Eye exam: PRESENT: conjunctiva pink, EOMI, PERRLA. ABSENT: scleral icterus Ear exam: PRESENT: normal external ear exam Mouth exam: PRESENT: moist, tongue midline Neck exam: ABSENT: carotid bruit, JVD, lymphadenopathy, thyromegaly Respiratory exam: PRESENT: accessory muscle use, decreased breath sounds - throughout, prolonged expiratory phas, retraction, tachypnea, wheezes - throughout. ABSENT: rales, rhonchi Cardiovascular exam: PRESENT: RRR, tachycardia. ABSENT: diastolic murmur, rubs , systolic murmur Pulses: PRESENT: normal dorsalis pedis pul Vascular exam: PRESENT: normal capillary refill GI/Abdominal exam: PRESENT: normal bowel sounds, soft. ABSENT: distended, guarding, mass, organolmegaly, rebound, tenderness Rectal exam: PRESENT: deferred Extremities exam: PRESENT: full ROM. ABSENT: calf tenderness, clubbing, pedal edema Neurological exam: PRESENT: alert, awake, oriented to person, oriented to place , oriented to time, oriented to situation, CN II-XII grossly intact. ABSENT: motor sensory deficit Psychiatric exam: PRESENT: appropriate affect, normal mood. ABSENT: homicidal ideation, suicidal ideation Skin exam: PRESENT: dry, intact, warm. ABSENT: cyanosis, rash Results Laboratory Results: 02/18/17 07:59 02/18/17 07:59 02/18/17 02/18/17 02/18/17 07:59 07:59 07:59 WBC 13.2 H RBC 4.81 Hgb 14.2 Hct 44.2 MCV 92 MCH 29.5 MCHC 32.0 RDW 13.5 Plt Count 231 Sodium 139.9 Potassium 4.9 Chloride 93 L Carbon Dioxide 40 H* Anion Gap 7 BUN 28 H Creatinine 0.91 Est GFR ( Amer) > 60 Est GFR (Non-Af Amer) > 60 Glucose 136 H Calcium 9.4 Magnesium 2.9 H 02/18/17 07:59 NT-Pro-B Natriuret Pep 76 Assessment & Plan - Diagnosis (1) Acute respiratory failure with hypoxia and hypercapnia Is this a current diagnosis for this admission?: Yes Plan: Worsened today; Dr. Alvarado is asked to see the patient with me. He is admitted to [facility] on continuous cardiac telemetry. ABG previously obtained and revealed uncompensated respiratory acidosis. Will monitor closely for evidence of further decline and intubate as necessary. Will continue supplemental oxygen as needed to keep O2 sats greater than 88%. BiPAP as needed; adjustments are made and he is provided prn ativan to improve tolerance of mask. He is provided a one time dose of Solu Medrol 80 mg and continues IV Solu- Medrol 40 mg every 8 hours. Stat neb treatment ordered with continued scheduled duo nebs and increased frequency and Xopenex as needed. He is provided Mucinex twice daily and Robitussin cough syrup. He has been placed on Singulair and Flonase. Repeat CXR is pending. Repeat BMP was obtained, 76, ruling out development of CHF as exacerbating factor. Dr. Castellanos has been consulted; I appreciate his evaluation and recommendations. (2) COPD exacerbation Is this a current diagnosis for this admission?: Yes Plan: Complicated by continued tobacco use and recent URI symptoms. Blood cultures: No growth at 72 hours Empirically started on Levaquin. He is provided Flonase and Singulair. Remaining plan as above. (3) Hypertensive urgency Is this a current diagnosis for this admission?: Yes Plan: Blood pressures are better controlled. BNP was within normal limits. Continue the patient's home medication regimen with IV hydralazine as needed. (4) Diabetes 1.5, managed as type 2 Is this a current diagnosis for this admission?: Yes Plan: The patient was placed on a cardiac and consistent carb diet. Continue his home dose Amaryl. Hold metformin. Accu-Cheks before meals and at bedtime with Humalog for sliding scale coverage. (5) GERD (gastroesophageal reflux disease) Plan: Continue PPI. (6) Maxillary sinusitis, acute Is this a current diagnosis for this admission?: Yes Plan: Plan as above. (7) Tobacco dependency Is this a current diagnosis for this admission?: Yes Plan: Smoking cessation is encouraged and nicotine replacement therapies are offered. - Time Time Spent with patient: 35 or more minutes Medications reviewed and adjusted accordingly: Yes - Inpatient Certification Based on my medical assessment, after consideration of the patient's comorbidities, presenting symptoms, or acuity I expect that the services needed warrant INPATIENT care.: Yes I certify that my determination is in accordance with my understanding of Medicare's requirements for reasonable and necessary INPATIENT services [42 CFR 412.3e].: Yes Medical Necessity: Need Close Monitoring Due to Risk of Patient Decompensation, Need For Continuous Telemetry Monitoring, Need for Nebulizer Therapy and Monitoring of Response - Plan Summary Plan Summary: The patient was admitted with a COPD exacerbation. He is on home O2 and has failed outpatient prednisone therapy. He has been admitted to [facility] on continuous telemetry with BiPAP Solu-Medrol, duo nebs. He was improving yesterday and has since acutely worsened. Watching closely for need to intubate. <ILIAJUNE C - Last Filed: 02/19/17 14:30> Subjective Reason For Visit: COPD EXACERBATION, ACUTE BRONCHITIS Physical Exam Vital Signs: Temp Pulse Resp BP Pulse Ox 97.2 F 88 24 H 149/92 H 99 02/19/17 11:31 02/19/17 12:00 02/19/17 12:00 02/19/17 11:31 02/19/17 12:00 Pulse Oximeter Continuous Start: 02/18/17 16: 56 Freq: RTQ4 Status: Active Document 02/19/17 12:00 NEELAM (Rec: 02/19/17 12:04 [facility] [email or web address]) Pulse Oximetry Assessment Oxygen Saturation (92-100) 99 Oxygen Delivery Method Bi-pap Fraction of Inspired Oxygen (FIO2) 30 Equipment Usage Equipment in Use Continuous SpO2 Machine # 11 Intake & Output 02/18/17 02/19/17 02/20/17 06:59 06:59 06:59 Intake Total 829 978 118 Output Total 0 Balance 829 978 118 Weight 90.7 kg 90.1 kg Results Laboratory Results: 02/19/17 04:52 02/19/17 04:52 02/19/17 02/19/17 02/19/17 04:52 04:52 08:52 WBC 11.7 H RBC 4.76 Hgb 13.9 Hct 44.3 MCV 93 MCH 29.2 MCHC 31.4 L RDW 13.5 Plt Count 215 Carbonic Acid 2.40 H HCO3/H2CO3 Ratio 16:1 ABG pH 7.32 L ABG pCO2 79.7 H* ABG pO2 139.1 H ABG HCO3 39.9 H ABG O2 Saturation 98.4 H ABG Base Excess 10.2 FiO2 30% Sodium 139.5 Potassium 5.2 H Chloride 93 L Carbon Dioxide 39 H Anion Gap 8 BUN 25 H Creatinine 0.79 Est GFR ( Amer) > 60 Est GFR (Non-Af Amer) > 60 Glucose 170 H Calcium 9.4 02/19/17 02/19/17 11:10 11:47 WBC RBC Hgb Hct MCV MCH MCHC RDW Plt Count Carbonic Acid Cancelled 2.17 H HCO3/H2CO3 Ratio Cancelled 18:1 ABG pH Cancelled 7.36 ABG pCO2 Cancelled 72.2 H* ABG pO2 Cancelled 91.8 ABG HCO3 Cancelled 39.7 H ABG O2 Saturation Cancelled 96.4 ABG Base Excess Cancelled 10.9 FiO2 Cancelled 30% Sodium Potassium Chloride Carbon Dioxide Anion Gap BUN Creatinine Est GFR ( Amer) Est GFR (Non-Af Amer) Glucose Calcium 02/18/17 07:59 NT-Pro-B Natriuret Pep 76 Impressions: Chest X-Ray 02/18/17 00:00 IMPRESSION: Lungs are hyperinflated and hyperlucent from obstructive disease. No acute infiltrates. Tiny nodule in the right posterior costophrenic sulcus seen on prior CT angio chest is not apparent on today's plain films. Assessment & Plan - Plan Summary Plan Summary: Goal sats 90% or more.
--- NOTE | 2017-02-18 11:59 | RADIOLOGY REPORT (SQ) ---
EXAM DESCRIPTION: CHEST SINGLE VIEW COMPLETED DATE/TIME: 02/18/2017 11:22 am REASON FOR STUDY: dyspnea COMPARISON: CT ANGIO CHEST 04/05/2016 CHEST FILMS 12/06/2016, 02/15/2017 EXAM PARAMETERS: NUMBER OF VIEWS: One view. TECHNIQUE: Single frontal radiographic view of the chest acquired. RADIATION DOSE: NA LIMITATIONS: None. FINDINGS: LUNGS AND PLEURA: Lungs are hyperinflated and hyperlucent from obstructive disease. Tiny 12 x 10 mm nodule in the right posterior costophrenic sulcus seen on chest CT 04/05/2016 is not a pparent by plain films. No acute infiltrates. No pleural effusion. No pneumothorax. MEDIASTINUM AND HILAR STRUCTURES: No masses. Contour normal. HEART AND VASCULAR STRUCTURES: Heart normal in size. Normal vasculature. BONES: No acute findings. HARDWARE: None in the chest. OTHER: No other significant finding. IMPRESSION: Lungs are hyperinflated and hyperlucent from obstructive disease. No acute infiltrates. Tiny nodule in the right posterior costophrenic sulcus seen on prior CT angio chest is not apparent o n today's plain films. TECHNICAL DOCUMENTATION: JOB ID: [id number] [employer]- All Rights Reserved
[2017-02-18] MEDS: ATORVASTATIN CALCIUM 10 MG TABLET PO SCH (22:10)
[2017-02-18] MEDS: INSULIN LISPRO 100 UNIT/ML 3 ML VIAL SUBCUT PRN (22:10)
[2017-02-18] MEDS: MONTELUKAST SODIUM 10 MG TABLET PO SCH (22:10)
[2017-02-19] MEDS: IPRATROPIUM/ALBUTEROL 0.5-2.5 MG/3 ML AMPUL NEB SCH ×6 (00:10→20:06)
[2017-02-19 05:12] LABS: HEMATOCRIT 44.3 % (37.9-51.0); HEMOGLOBIN 13.9 g/dL (13.5-17.0); MEAN CORPUSCULAR HEMOGLOBIN 29.2 pg (27.0-33.4); MEAN CORPUSCULAR HGB CONC 31.4 g/dL (32.0-36.0); MEAN CORPUSCULAR VOLUME 93 fl (80-97); PLATELET COUNT 215 10^3/uL (150-450); RED BLOOD COUNT 4.76 10^6/uL (4.35-5.55); RED CELL DISTRIBUTION WIDTH 13.5 % (11.5-14.0); WHITE BLOOD COUNT 11.7 10^3/uL (4.0-10.5)
[2017-02-19] MEDS: DILTIAZEM HCL 30 MG TABLET PO SCH ×4 (05:24→23:06)
[2017-02-19] MEDS: METHYLPREDNISOLONE INJ 40 MG/1 ML SDV IV SCH (05:24)
[2017-02-19] MEDS: HEPARIN SOD (PORCINE) 5,000 UNIT/ML 1 ML SYRINGE SUBCUT SCH ×3 (05:24→23:02)
[2017-02-19 05:29] LABS: ANION GAP 8 (5-19); BLOOD UREA NITROGEN 25 mg/dL (7-20); CALCIUM 9.4 mg/dL (8.4-10.2); CARBON DIOXIDE 39 mmol/L (22-30); CHLORIDE 93 mmol/L (98-107); GLUCOSE 170 mg/dL (75-110); POTASSIUM 5.2 mmol/L (3.6-5.0); SODIUM 139.5 mmol/L (137-145)
[2017-02-19] MEDS: LEVOFLOXACIN 750 MG/D5W RTU 750 MG/150 ML RTUPB IV SCH (08:16)
[2017-02-19 09:07] LABS: ARTERIAL BLOOD BASE EXCESS 10.2 mmol/L; ARTERIAL BLOOD HCO3 39.9 mmol/L (20-26); ARTERIAL BLOOD O2 SATURATION 98.4 % (94-98); ARTERIAL BLOOD PH 7.32 (7.35-7.45); ARTERIAL BLOOD PO2 139.1 mmHg (80-100); ARTERIAL BLOOD TOTAL CO2 42.3 mmol/L (23-27)
[2017-02-19 09:18] LABS: ARTERIAL BLOOD FIO2 30%
[2017-02-19 09:20] LABS: ARTERIAL BLOOD PCO2 79.7 mmHg (35-45)
[2017-02-19] MEDS: GLIMEPIRIDE 4 MG TABLET PO SCH (10:53)
[2017-02-19] MEDS: MAGNESIUM OXIDE 400 MG TABLET PO SCH (10:53)
[2017-02-19] MEDS: LOSARTAN POTASSIUM 25 MG TABLET PO SCH (10:54)
[2017-02-19] MEDS: LANSOPRAZOLE 30 MG TAB.RAP.DR PO SCH (10:54)
[2017-02-19] MEDS: GUAIFENESIN 600 MG TABLET.SA PO SCH ×2 (10:55→23:01)
[2017-02-19] MEDS: NICOTINE 14 MG/24 HR PATCH.TD24 TD SCH (10:55)
[2017-02-19] MEDS: FLUTICASONE NASAL SPRAY 50 MCG/SPRY 120 SPRAY/16 GM NASL SCH ×2 (10:55→23:03)
[2017-02-19] MEDS ORDERED: METHYLPREDNISOLONE INJ 40 MG/1 ML SDV IV SCH (12:00)
[2017-02-19] MEDS ORDERED: BUDESONIDE NEB 0.5 MG/2 ML AMPUL NEB ONE (12:00)
[2017-02-19] MEDS: METHYLPREDNISOLONE INJ 125 MG/2 ML SDV IV SCH ×3 (12:43→23:06)
[2017-02-19 12:53] LABS: ARTERIAL BLOOD BASE EXCESS 10.9 mmol/L; ARTERIAL BLOOD FIO2 30%; ARTERIAL BLOOD H2CO3 2.17 mmol/L (1.05-1.35); ARTERIAL BLOOD HCO3 39.7 mmol/L (20-26); ARTERIAL BLOOD O2 SATURATION 96.4 % (94-98); ARTERIAL BLOOD PH 7.36 (7.35-7.45); ARTERIAL BLOOD PO2 91.8 mmHg (80-100); ARTERIAL BLOOD TOTAL CO2 41.9 mmol/L (23-27)
[2017-02-19] MEDS ORDERED: ALPRAZOLAM 0.25 MG TABLET PO ONE (13:00)
[2017-02-19 13:02] LABS: ARTERIAL BLOOD PCO2 72.2 mmHg (35-45)
--- NOTE | 2017-02-19 18:44 | PDOC PROGRESS REPORT ---
Subjective Progress Note for:: 02/19/17 Subjective:: Pt states that he is feeling better. Reason For Visit: COPD EXACERBATION, ACUTE BRONCHITIS Physical Exam Vital Signs: Temp Pulse Resp BP Pulse Ox 98.1 F 99 22 H 147/84 H 98 02/19/17 15:52 02/19/17 17:06 02/19/17 16:22 02/19/17 15:52 02/19/17 16:22 Pulse Oximeter Continuous Start: 02/18/17 16: 56 Freq: RTQ4 Status: Active Document 02/19/17 16:22 JDR (Rec: 02/19/17 16:24 [email or web address] [email or web address]) Pulse Oximetry Assessment Oxygen Saturation (92-100) 98 Oxygen Delivery Method Bi-pap Fraction of Inspired Oxygen (FIO2) 30 Equipment Usage Equipment in Use Continuous SpO2 Machine # 11 Intake & Output 02/18/17 02/19/17 02/20/17 06:59 06:59 06:59 Intake Total 829 978 118 Output Total 0 Balance 829 978 118 Weight 90.7 kg 90.1 kg General appearance: PRESENT: no acute distress, well-developed, well-nourished Head exam: PRESENT: atraumatic, normocephalic Eye exam: PRESENT: conjunctiva pink, EOMI, PERRLA. ABSENT: scleral icterus Ear exam: PRESENT: normal external ear exam Mouth exam: PRESENT: moist, tongue midline Neck exam: ABSENT: carotid bruit, JVD, lymphadenopathy, thyromegaly Respiratory exam: PRESENT: accessory muscle use, other - Fair air movement, + Scant wheezing. Cardiovascular exam: PRESENT: RRR. ABSENT: diastolic murmur, rubs, systolic murmur Pulses: PRESENT: normal dorsalis pedis pul Vascular exam: PRESENT: normal capillary refill GI/Abdominal exam: PRESENT: normal bowel sounds, soft. ABSENT: distended, guarding, mass, organolmegaly, rebound, tenderness Rectal exam: PRESENT: deferred Neurological exam: PRESENT: alert, awake, oriented to person, oriented to place , oriented to time, oriented to situation, CN II-XII grossly intact. ABSENT: motor sensory deficit Psychiatric exam: PRESENT: appropriate affect, normal mood. ABSENT: homicidal ideation, suicidal ideation Skin exam: PRESENT: dry, intact, warm. ABSENT: cyanosis, rash Results Laboratory Results: 02/19/17 04:52 02/19/17 04:52 02/19/17 02/19/17 02/19/17 04:52 04:52 08:52 WBC 11.7 H RBC 4.76 Hgb 13.9 Hct 44.3 MCV 93 MCH 29.2 MCHC 31.4 L RDW 13.5 Plt Count 215 Carbonic Acid 2.40 H HCO3/H2CO3 Ratio 16:1 ABG pH 7.32 L ABG pCO2 79.7 H* ABG pO2 139.1 H ABG HCO3 39.9 H ABG O2 Saturation 98.4 H ABG Base Excess 10.2 FiO2 30% Sodium 139.5 Potassium 5.2 H Chloride 93 L Carbon Dioxide 39 H Anion Gap 8 BUN 25 H Creatinine 0.79 Est GFR ( Amer) > 60 Est GFR (Non-Af Amer) > 60 Glucose 170 H Calcium 9.4 02/19/17 02/19/17 11:10 11:47 WBC RBC Hgb Hct MCV MCH MCHC RDW Plt Count Carbonic Acid Cancelled 2.17 H HCO3/H2CO3 Ratio Cancelled 18:1 ABG pH Cancelled 7.36 ABG pCO2 Cancelled 72.2 H* ABG pO2 Cancelled 91.8 ABG HCO3 Cancelled 39.7 H ABG O2 Saturation Cancelled 96.4 ABG Base Excess Cancelled 10.9 FiO2 Cancelled 30% Sodium Potassium Chloride Carbon Dioxide Anion Gap BUN Creatinine Est GFR ( Amer) Est GFR (Non-Af Amer) Glucose Calcium 02/18/17 07:59 NT-Pro-B Natriuret Pep 76 Impressions: Chest X-Ray 02/18/17 00:00 IMPRESSION: Lungs are hyperinflated and hyperlucent from obstructive disease. No acute infiltrates. Tiny nodule in the right posterior costophrenic sulcus seen on prior CT angio chest is not apparent on today's plain films. Assessment & Plan - Diagnosis (1) Acute respiratory failure with hypoxia and hypercapnia Is this a current diagnosis for this admission?: Yes Plan: Will continue current treatment. No new changes today. (2) COPD exacerbation Is this a current diagnosis for this admission?: Yes Plan: Will continue current treatment. No new changes today. (3) Hypertensive urgency Is this a current diagnosis for this admission?: Yes Plan: Will continue current blood pressure management. (4) Tobacco dependency Is this a current diagnosis for this admission?: Yes Plan: Encourage discontinuation of smoking. (5) Diabetes 1.5, managed as type 2 Is this a current diagnosis for this admission?: Yes Plan: SSI. (6) Maxillary sinusitis, acute Qualifiers: Is this a current diagnosis for this admission?: Yes Plan: Will continue Levaquin. (7) Hyperkalemia Is this a current diagnosis for this admission?: Yes Plan: Will continue current treatment. Will check BMP in am.
[2017-02-19] MEDS: BUDESONIDE NEB 0.5 MG/2 ML AMPUL NEB SCH (20:06)
[2017-02-19] MEDS: MONTELUKAST SODIUM 10 MG TABLET PO SCH (23:01)
[2017-02-19] MEDS: ATORVASTATIN CALCIUM 10 MG TABLET PO SCH (23:01)
[2017-02-20] MEDS: IPRATROPIUM/ALBUTEROL 0.5-2.5 MG/3 ML AMPUL NEB SCH ×3 (00:20→07:51)
[2017-02-20 05:05] LABS: ABSOLUTE LYMPHOCYTES (AUTO) 0.9 10^3/uL (0.5-4.7); ABSOLUTE MONOCYTES (AUTO) 0.7 10^3/uL (0.1-1.4); ABSOLUTE NEUT (AUTO) 10.7 10^3/uL (1.7-8.2); BASOPHILS % (AUTO) 0.4 % (0-2); HEMOGLOBIN 14.2 g/dL (13.5-17.0); LYMPHOCYTES % (AUTO) 7.2 % (13-45); MEAN CORPUSCULAR HEMOGLOBIN 29.9 pg (27.0-33.4); MEAN CORPUSCULAR HGB CONC 32.3 g/dL (32.0-36.0); MEAN CORPUSCULAR VOLUME 93 fl (80-97); MONOCYTES % (AUTO) 5.5 % (3-13); PLATELET COUNT 211 10^3/uL (150-450); RED BLOOD COUNT 4.75 10^6/uL (4.35-5.55); RED CELL DISTRIBUTION WIDTH 13.3 % (11.5-14.0); SEGMENTED NEUTROPHILS % (AUTO) 86.9 % (42-78); TOTAL CELLS COUNTED % (AUTO) 100 %; WHITE BLOOD COUNT 12.4 10^3/uL (4.0-10.5)
[2017-02-20 05:23] LABS: BLOOD UREA NITROGEN 25 mg/dL (7-20); CALCIUM 9.5 mg/dL (8.4-10.2); CHLORIDE 93 mmol/L (98-107); GLUCOSE 192 mg/dL (75-110); MAGNESIUM 2.8 mg/dL (1.6-2.3); POTASSIUM 5.1 mmol/L (3.6-5.0); SODIUM 140.8 mmol/L (137-145)
[2017-02-20 05:39] LABS: ANION GAP 8 (5-19)
[2017-02-20 06:08] LABS: CARBON DIOXIDE 40 mmol/L (22-30)
[2017-02-20 06:17] LABS: ARTERIAL BLOOD H2CO3 2.17 mmol/L (1.05-1.35); ARTERIAL BLOOD HCO3 39.8 mmol/L (20-26); ARTERIAL BLOOD O2 SATURATION 97.2 % (94-98); ARTERIAL BLOOD PH 7.36 (7.35-7.45); ARTERIAL BLOOD PO2 102.1 mmHg (80-100)
[2017-02-20 06:21] LABS: ARTERIAL BLOOD FIO2 30%
[2017-02-20] MEDS: DILTIAZEM HCL 30 MG TABLET PO SCH (06:33)
[2017-02-20] MEDS: METHYLPREDNISOLONE INJ 125 MG/2 ML SDV IV SCH ×4 (06:34→23:43)
[2017-02-20] MEDS: HEPARIN SOD (PORCINE) 5,000 UNIT/ML 1 ML SYRINGE SUBCUT SCH ×3 (06:34→23:44)
[2017-02-20] MEDS: BUDESONIDE NEB 0.5 MG/2 ML AMPUL NEB SCH ×2 (07:52→20:09)
[2017-02-20] MEDS: NICOTINE 14 MG/24 HR PATCH.TD24 TD SCH (10:15)
[2017-02-20] MEDS: LOSARTAN POTASSIUM 25 MG TABLET PO SCH (10:17)
[2017-02-20] MEDS: LEVOFLOXACIN 750 MG TABLET PO SCH (10:17)
[2017-02-20] MEDS: LANSOPRAZOLE 30 MG TAB.RAP.DR PO SCH (10:17)
[2017-02-20] MEDS: GLIMEPIRIDE 4 MG TABLET PO SCH (10:18)
[2017-02-20] MEDS: GUAIFENESIN 600 MG TABLET.SA PO SCH ×2 (10:18→23:45)
[2017-02-20] MEDS: MAGNESIUM OXIDE 400 MG TABLET PO SCH (10:21)
[2017-02-20] MEDS: FLUTICASONE NASAL SPRAY 50 MCG/SPRY 120 SPRAY/16 GM NASL SCH ×2 (10:23→23:47)
[2017-02-20] MEDS ORDERED: LEVALBUTEROL HCL NEB 0.63 MG/3 ML AMPUL NEB PRN (11:13)
--- NOTE | 2017-02-20 12:04 | PROGRESS NOTE E ---
Progress Note NAME: RICHARD FOOTE : 1950 AGE: 66Y DATE: 02/20/2017 ROOM: 319 SUBJECTIVE: The patient is currently lying in bed. He states he feels better now in comparison to when he came in. He still denies any nausea, vomiting. There has been no diarrhea. The patient states the shortness of breath overall is improved as long as he is on the mask, but still feels as though he cannot get air in when he is not wearing the mask. The patient's PCO2 remained elevated this morning and the patient does not voice any specific concerns at this time. REVIEW OF SYSTEMS: Rest of review of systems is negative. MEDICATIONS: Medications have been reviewed. OBJECTIVE: GENERAL: The patient is a 66-year-old -M[place] male who is awake, alert, and oriented to person, place, time, and situation. He is verbal, conversational, does not appear to be in any acute distress. VITAL SIGNS: Temperature is 97.8, pulse 84, respirations 22, blood pressure 139/83, oxygen saturation is 100% on 40% FiO2 on BiPAP. SKIN: Warm and dry. No rash. She is not diaphoretic. HEENT: Pupils equal, round, reactive to light and accommodation. Conjunctiva is pink. There is no evidence of JVP. CARDIOVASCULAR SYSTEM: Heart is regular. There is no murmur or rub. CHEST: Clear, but diminished, symmetrical, unlabored. ABDOMEN: Soft, nontender, nondistended. BACK: No CVA tenderness or sacral edema. EXTREMITIES: No clubbing, cyanosis, edema. PSYCHIATRIC: Appropriate affect, pleasant mood. DIAGNOSTICS: Lab values are as follows: Hematology obtained on 02/20/2017: WBCs are 12.4, hemoglobin is 14.2, hematocrit is 44.0, platelet count is 211,000. Blood gas obtained on 02/20/2017: PH is 7.36, PCO2 is 72, PO2 is 102, bicarb is 39 and that is on 30% FiO2. Chemistry obtained on 02/20/2017: Sodium is 140, potassium 5.1, chloride is 93, carbon dioxide 40, BUN 25, creatinine is 0.81, glucose 192, calcium is 9.5, magnesium is 2.8. IMPRESSION AND PLAN: 1. CHRONIC OBSTRUCTIVE PULMONARY DISEASE EXACERBATION. The patient is still retaining O2. I have continued his steroids and nebs. Do appreciate Dr. Castellanos's input on this. 2. ACUTE ON CHRONIC HYPOXEMIC AND HYPERCAPNIC RESPIRATORY FAILURE. Will repeat blood gas in the a.m. and continue BiPAP. 3. HYPERTENSIVE URGENCY. Blood pressures overall are much improved. Will continue to follow. 4. DIABETES MELLITUS TYPE 2. Will continue sliding scale coverage. Have also continued the patient's home medications. 5. HYPERKALEMIA. Will repeat BMP in the a.m. and follow. 6. ACUTE MAXILLARY SINUSITIS. Will continue Levaquin. 7. TOBACCO DEPENDENCY, CONTINUOUS. Spent 3 minutes discussing smoking cessation education. The patient declines any pharmacological intervention at this time. DISPOSITION: The patient is a FULL CODE. Pending patient's symptomatology and diagnostic findings, will re-evaluate in the a.m. Time spent on this followup including assessment, plan, physical examination, patient education, review of records is 25 minutes. DICTATING PHYSICIAN: JOSE MEAD NP [id number] PHY#: [id number] ID: [id number] JOB#: [id number] ACCT: [id number] cc: >
[2017-02-20] MEDS: LEVALBUTEROL HCL NEB 1.25 MG/3 ML AMPUL NEB SCH ×2 (13:39→20:10)
[2017-02-20] MEDS: MONTELUKAST SODIUM 10 MG TABLET PO SCH (23:44)
[2017-02-20] MEDS: ATORVASTATIN CALCIUM 10 MG TABLET PO SCH (23:45)
[2017-02-21] MEDS: LANSOPRAZOLE 30 MG TAB.RAP.DR PO SCH ×2 (06:41→10:23)
[2017-02-21] MEDS: HEPARIN SOD (PORCINE) 5,000 UNIT/ML 1 ML SYRINGE SUBCUT SCH ×3 (06:42→21:52)
[2017-02-21] MEDS: METHYLPREDNISOLONE INJ 125 MG/2 ML SDV IV SCH (06:44)
[2017-02-21 07:22] LABS: ABSOLUTE BASOPHILS # (AUTO) 0.1 10^3/uL (0.0-0.2); ABSOLUTE MONOCYTES (AUTO) 1.1 10^3/uL (0.1-1.4); ABSOLUTE NEUT (AUTO) 14.9 10^3/uL (1.7-8.2); BASOPHILS % (AUTO) 0.3 % (0-2); EOSINOPHILS % (AUTO) 0.1 % (0-6); HEMATOCRIT 44.1 % (37.9-51.0); HEMOGLOBIN 14.3 g/dL (13.5-17.0); LYMPHOCYTES % (AUTO) 5.9 % (13-45); MEAN CORPUSCULAR HEMOGLOBIN 29.7 pg (27.0-33.4); MEAN CORPUSCULAR HGB CONC 32.3 g/dL (32.0-36.0); MEAN CORPUSCULAR VOLUME 92 fl (80-97); MONOCYTES % (AUTO) 6.4 % (3-13); PLATELET COUNT 218 10^3/uL (150-450); SEGMENTED NEUTROPHILS % (AUTO) 87.3 % (42-78); TOTAL CELLS COUNTED % (AUTO) 100 %
[2017-02-21 07:26] LABS: VENOUS BLOOD BASE EXCESS 15.5 mmol/L; VENOUS BLOOD PH 7.35 (7.30-7.42)
[2017-02-21 07:32] LABS: VENOUS BLOOD PCO2 85.4 mmHg (35-63)
[2017-02-21 07:45] LABS: BLOOD UREA NITROGEN 32 mg/dL (7-20); CALCIUM 9.5 mg/dL (8.4-10.2); CHLORIDE 93 mmol/L (98-107); GLUCOSE 152 mg/dL (75-110); MAGNESIUM 2.7 mg/dL (1.6-2.3); PHOSPHORUS 3.5 mg/dL (2.5-4.5); POTASSIUM 5.3 mmol/L (3.6-5.0)
[2017-02-21 07:52] LABS: ANION GAP 9 (5-19); CARBON DIOXIDE 39 mmol/L (22-30)
[2017-02-21] MEDS: GLIMEPIRIDE 1 MG TABLET PO SCH (08:26)
[2017-02-21 08:32] LABS: ARTERIAL BLOOD BASE EXCESS 16.1 mmol/L; ARTERIAL BLOOD FIO2 28%; ARTERIAL BLOOD H2CO3 2.11 mmol/L (1.05-1.35); ARTERIAL BLOOD HCO3 44.5 mmol/L (20-26); ARTERIAL BLOOD O2 SATURATION 96.3 % (94-98); ARTERIAL BLOOD PH 7.42 (7.35-7.45); ARTERIAL BLOOD TOTAL CO2 46.7 mmol/L (23-27)
[2017-02-21 08:33] LABS: ARTERIAL BLOOD PCO2 70.2 mmHg (35-45)
[2017-02-21] MEDS: BUDESONIDE NEB 0.5 MG/2 ML AMPUL NEB SCH ×2 (09:11→20:26)
[2017-02-21] MEDS: LEVALBUTEROL HCL NEB 1.25 MG/3 ML AMPUL NEB SCH ×3 (09:11→20:25)
[2017-02-21] MEDS ORDERED: (PENDING PHARMACY ID) (Cyanocobalamin (Vitamin B-12) [Vitamin B-12] 500 MCG) PO SCH (10:00)
[2017-02-21] MEDS: LEVOFLOXACIN 750 MG TABLET PO SCH (10:23)
[2017-02-21] MEDS: MAGNESIUM OXIDE 400 MG TABLET PO SCH (10:23)
[2017-02-21] MEDS: LOSARTAN POTASSIUM 25 MG TABLET PO SCH (10:23)
[2017-02-21] MEDS: CYANOCOBALAMIN (VITAMIN B-12) 1,000 MCG TABLET PO SCH (10:23)
[2017-02-21] MEDS: FLUTICASONE NASAL SPRAY 50 MCG/SPRY 120 SPRAY/16 GM NASL SCH ×2 (10:23→21:52)
[2017-02-21] MEDS: CETIRIZINE 10 MG TABLET PO SCH (10:23)
[2017-02-21] MEDS: GUAIFENESIN 600 MG TABLET.SA PO SCH ×2 (10:24→21:51)
[2017-02-21] MEDS: NICOTINE 14 MG/24 HR PATCH.TD24 TD SCH (10:24)
[2017-02-21] MEDS: GLIMEPIRIDE 4 MG TABLET PO SCH (10:35)
--- NOTE | 2017-02-21 12:24 | PROGRESS NOTE E ---
Progress Note NAME: RICHARD FOOTE : 1950 AGE: 66Y DATE: 02/21/2017 ROOM: 319 SUBJECTIVE: The patient is seen twice today on rounds, one in conjunction with Pulmonology. The patient remains pretty much the same as yesterday. PCO2 is steadily in the 70s. Patient's O2 was decreased slightly. The patient has had no reported episodes of vomiting nor diarrhea. The patient still complains of stuffiness nasally in spite of Flonase, and the patient does not voice any other concerns at this time. REVIEW OF SYSTEMS: Rest of review of systems negative. MEDICATIONS: Medications have been reviewed. OBJECTIVE: GENERAL: The patient is a 66-year-old -[place] male who is awake, alert, and oriented to person, place, time, and situation. She is verbal, conversational, ambulatory, does not appear to be in acute distress. VITAL SIGNS: Temperature is 97.7, pulse 87, respirations 20, blood pressure is 164/96, oxygen saturation is 92% on 20% FiO2. SKIN: Warm and dry. No rash. Not diaphoretic. HEENT: Pupils equal, round, and reactive to light and accommodation. Conjunctiva is pink. There is no evidence of JVP. CARDIOVASCULAR SYSTEM: Heart is regular. There is no murmur or rub. CHEST: Diminished with some expiratory wheezes, but overall clear in comparison to yesterday. ABDOMEN: Soft, nontender, nondistended. BACK: No CVA tenderness or sacral edema. EXTREMITIES: No clubbing, cyanosis, edema. PSYCHIATRIC: Appropriate affect. Pleasant mood. DIAGNOSTICS: Lab values are as follows: Hematology obtained on 02/21/2017: WBC is 13.0, hemoglobin is 14.3, hematocrit is 44.1, platelet count is 218,000. Chemistry obtained on 02/21/2017: Sodium is 141, potassium 5.3, chloride is 93, carbon dioxide 39, BUN 32, creatinine is 0.84, glucose 152, calcium is 9.5, phosphorus is 3.5, magnesium is 2.7. IMPRESSION AND PLAN: 1. CHRONIC OBSTRUCTIVE PULMONARY DISEASE EXACERBATION. Will continue steroids, nebulizers, and supportive therapy. Do appreciate Pulmonology's input on this. 2. ACUTE ON CHRONIC HYPOXEMIC AND HYPERCAPNIC RESPIRATORY FAILURE. The patient appears to have a PCO2 that is baseline, is in the 70s. Will continue supportive measures and follow. 3. HYPERTENSIVE URGENCY. Blood pressure is overall much improved. 4. DIABETES MELLITUS TYPE 2. Will continue sliding scale coverage. 5. HYPERKALEMIA. Will repeat BMP in the a.m. 6. ACUTE MAXILLARY SINUSITIS. Continue Levaquin. 7. TOBACCO DEPENDENCY, CONTINUOUS. Continue p.r.n. nicotine patch. DISPOSITION: The patient is a FULL CODE. Pending patient's symptomatology and diagnostic findings, we will re-evaluate in the a.m. Time spent on this followup including assessment, plan, physical examination, patient education, review of records, specialty collaboration is 25 minutes. DICTATING PHYSICIAN: JOSE MEAD NP [id number] PHY#: [id number] ID: [id number] JOB#: [id number] ACCT: [id number] cc: >
[2017-02-21] MEDS ORDERED: KETOROLAC TROMETHAMINE INJ/PF 30 MG/1 ML SDV IV ONE (13:05)
[2017-02-21] MEDS: SODIUM CHLORIDE NASAL SPRAY 44 ML NASL SCH ×2 (15:30→21:55)
[2017-02-21] MEDS: PREDNISONE 20 MG TABLET PO SCH (18:49)
[2017-02-21] MEDS: MONTELUKAST SODIUM 10 MG TABLET PO SCH (21:52)
[2017-02-21] MEDS: ATORVASTATIN CALCIUM 10 MG TABLET PO SCH (21:52)
[2017-02-22] MEDS: LANSOPRAZOLE 30 MG TAB.RAP.DR PO SCH (07:14)
[2017-02-22] MEDS: HEPARIN SOD (PORCINE) 5,000 UNIT/ML 1 ML SYRINGE SUBCUT SCH ×3 (07:14→22:36)
[2017-02-22] MEDS: LEVALBUTEROL HCL NEB 1.25 MG/3 ML AMPUL NEB SCH ×3 (08:31→20:01)
[2017-02-22] MEDS: BUDESONIDE NEB 0.5 MG/2 ML AMPUL NEB SCH ×2 (08:38→20:01)
[2017-02-22 09:56] LABS: ANION GAP 7 (5-19); BLOOD UREA NITROGEN 32 mg/dL (7-20); CALCIUM 9.4 mg/dL (8.4-10.2); CARBON DIOXIDE 39 mmol/L (22-30); CHLORIDE 96 mmol/L (98-107); GLUCOSE 140 mg/dL (75-110); MAGNESIUM 2.6 mg/dL (1.6-2.3); POTASSIUM 4.5 mmol/L (3.6-5.0); SODIUM 141.8 mmol/L (137-145)
[2017-02-22] MEDS: GLIMEPIRIDE 1 MG TABLET PO SCH (10:13)
[2017-02-22] MEDS: FLUTICASONE NASAL SPRAY 50 MCG/SPRY 120 SPRAY/16 GM NASL SCH ×2 (10:13→22:35)
[2017-02-22] MEDS: GUAIFENESIN 600 MG TABLET.SA PO SCH ×2 (10:14→22:36)
[2017-02-22] MEDS: MAGNESIUM OXIDE 400 MG TABLET PO SCH (10:14)
[2017-02-22] MEDS: SODIUM CHLORIDE NASAL SPRAY 44 ML NASL SCH ×4 (10:14→22:35)
[2017-02-22] MEDS: LOSARTAN POTASSIUM 25 MG TABLET PO SCH (10:15)
[2017-02-22] MEDS: CYANOCOBALAMIN (VITAMIN B-12) 1,000 MCG TABLET PO SCH (10:15)
[2017-02-22] MEDS: NICOTINE 14 MG/24 HR PATCH.TD24 TD SCH (10:15)
[2017-02-22] MEDS: LEVOFLOXACIN 750 MG TABLET PO SCH (10:15)
[2017-02-22] MEDS: PREDNISONE 20 MG TABLET PO SCH ×2 (10:15→18:30)
[2017-02-22] MEDS: CETIRIZINE 10 MG TABLET PO SCH (10:15)
[2017-02-22] MEDS ORDERED: MAG HYDROX/AL HYDROX/SIMETH SUSP 30 ML UDCUP PO PRN (14:39)
[2017-02-22 15:16] LABS: ARTERIAL BLOOD BASE EXCESS 13.4 mmol/L; ARTERIAL BLOOD HCO3 41.3 mmol/L (20-26); ARTERIAL BLOOD O2 SATURATION 96.3 % (94-98); ARTERIAL BLOOD PCO2 66.6 mmHg (35-45); ARTERIAL BLOOD PH 7.41 (7.35-7.45); ARTERIAL BLOOD PO2 86.5 mmHg (80-100); ARTERIAL BLOOD TOTAL CO2 43.3 mmol/L (23-27)
[2017-02-22 15:17] LABS: ARTERIAL BLOOD FIO2 2L
--- NOTE | 2017-02-22 15:33 | PROGRESS NOTE E ---
Progress Note NAME: RICHARD FOOTE : 1950 AGE: 66Y DATE: 02/22/2017 ROOM: 319 SUBJECTIVE: The patient is currently lying in bed. He states he wants to go home today but the patient is unable to fully complete sentences. He is still quite dyspneic. The patient denies any nausea, vomiting, or diarrhea. No dizziness or chest pain. No fever or chills. The patient has been afebrile and blood pressures have been in a good range. The patient's blood gas is still pending from this morning. The patient does not voice any other concerns at this time. REVIEW OF SYSTEMS: Rest of the review of systems negative. MEDICATIONS: Have been reviewed. OBJECTIVE: GENERAL: The patient is a 66-year-old -[place] male who is awake, alert, and oriented to person, place, time, and situation. He is verbal, conversational, and does not appear to be in acute distress. VITAL SIGNS: Temperature 97.9, pulse 81, respirations 23, blood pressure 152/97, oxygen saturation is 95% on 3 L nasal cannula. SKIN: Warm and dry. No rash. He is not diaphoretic. HEENT: Pupils equal, round, reactive to light and accommodation. Conjunctivae are pink. There is no evidence of JVP. CARDIOVASCULAR: Heart is regular. There is no murmur or rub. CHEST: Very diminished. Expiratory wheezes noted in upper lung levine. Symmetrical, mildly labored. ABDOMEN: Soft, nontender, nondistended. BACK: No CVA tenderness or sacral edema. EXTREMITIES: No clubbing, cyanosis, or edema. PSYCHIATRIC: Appropriate affect. Pleasant mood. DIAGNOSTICS: Lab values are as follow: Hematology obtained on 02/21/2017: WBCs are 17.0, hemoglobin is 14.3, hematocrit is 44.1, platelet count is 218,000. Chemistry obtained on 02/22/2017: Sodium is 141, potassium 4.5, chloride is 96, carbon dioxide 39, BUN 32, creatinine is 0.82, glucose 140, calcium is 9.4, phosphorus is 2.6. IMPRESSION AND PLAN: 1. CHRONIC OBSTRUCTIVE PULMONARY DISEASE EXACERBATION. Will continue steroids and supportive therapy. Do appreciate Pulmonology's input on this. 2. [id number] HYPOXEMIC AND HYPERCAPNIC RESPIRATORY FAILURE. The patient appears to have an elevated pCO2 at baseline. It is in the 70s, however, given that the patient's symptoms have gone on throughout the week, we will obtain CT imaging of the chest and follow. 3. HYPERTENSIVE URGENCY. Blood pressure is overall improved. 4. DIABETES MELLITUS TYPE 2. Will continue sliding scale coverage. 5. HYPERKALEMIA. Will repeat BMP in the a.m. 6. ACUTE MAXILLARY SINUSITIS. Continue Levaquin. 7. TOBACCO DEPENDENCY, CONTINUOUS. Will continue p.r.n. nicotine patch. DISPOSITION: The patient is a FULL CODE. Pending patient's symptomatology and diagnostic findings, will reevaluate in the a.m. Time spent on this followup including assessment, plan, physical examination, patient education, and review of records is 25 minutes. DICTATING PHYSICIAN: JOSE MEAD NP [id number] [id number] PHY#: [id number] ID: [id number] JOB#: [id number] ACCT: [id number] cc: >
--- NOTE | 2017-02-22 16:56 | RADIOLOGY REPORT (SQ) ---
EXAM DESCRIPTION: CTA CHEST COMPLETED DATE/TIME: 02/22/2017 4:35 pm REASON FOR STUDY: Respiratory failure COMPARISON: Chest films 02/18/2017, 12/06/2016, 01/24/2015, 08/27/[address] chest 04/05/2016, 09/12/2015 Prior PET-CT 04/27/2016 TECHNIQUE: CT scan of the chest performed using helical scanning technique with dynamic intravenous contrast injection. Images reviewed with lung, soft tissue and bone windows. Reconstructed coronal and sagittal MPR images reviewed. Additional 3 dimensional post-processing performed to develop Maximal Intensity Projection images (SD P). All images stored on PACS. All CT scanners at this facility use dose modulation, iterative reconstruction, and/or weight based d osing when appropriate to reduce radiation dose to as low as reasonably achievable (ALARA). [facility]: Dose Right [facility]: CareDose [facility]: Dose Right [facility]: Teradose 4D [facility]: SetMeUp CONTRAST TYPE AND DOSE: contrast/concentration: Isovue 370.00 mg/ml; Total Contrast Delivered: 70.0 ml; Total Saline Delivered: 110.0 ml Contrast bolus optimized for the pulmonary arteries. Not diagnostic for the aorta. RENAL FUNCTION: Creatinine 0.8 RADIATION DOSE: CT Rad equipment meets quality standard of care and radiation dose reduction techniq ues were employed. CTDIvol: 1.9 - 18.8 mGy. DLP: 1060 mGy-cm. . LIMITATIONS: None. FINDINGS: LUNGS AND PLEURA: Advanced obstructive lung disease is present with enlarged airspaces mos t pronounced at the apices. No worrisome pulmonary nodules. No focal infiltrates. No pneumothorax. No pleural effusions. Benign 6 mm focus of pleural thickening along the inferior left major fissur e axial image 39 unchanged from previous exams AORTA AND GREAT VESSELS: No aneurysm. Contrast bolus not optimized for the aorta. HEART: No pericardial effusion. No significant coronary artery calcifications. PULMONARY ARTERIES: No emboli visualized in the main pulmonary arteries or the segmental branches. HILAR AND MEDIASTINAL STRUCTURES: No identified masses or abnormal nodes. HARDWARE: None in the chest. UPPER ABDOMEN: No significant findings. Limited exam. THYROID AND OTHER SOFT TISSUES: No masses. No adenopathy. BONES: No acute or significant finding. 3D MIPS: Confirm above findings. OTHER: No other significant finding. IMPRESSION: No CT angio evidence of acute pulmonary emboli Advanced obstructive lung disease COMMENT: Quality ID # [id number]: Final reports with documentation of one or more dose reduction techniques (e.g., Automated exposure control, adjustment of the mA and/or kV according to patient size, use of iterative reconstruction technique) TECHNICAL DOCUMENTATION: JOB ID: [id number] [employer]- All Rights Reserved
[2017-02-22] MEDS: MONTELUKAST SODIUM 10 MG TABLET PO SCH (22:36)
[2017-02-22] MEDS: ATORVASTATIN CALCIUM 10 MG TABLET PO SCH (22:36)
[2017-02-22] MEDS: INSULIN LISPRO 100 UNIT/ML 3 ML VIAL SUBCUT PRN (23:14)
[2017-02-23 04:31] LABS: HEMATOCRIT 43.7 % (37.9-51.0); MEAN CORPUSCULAR HEMOGLOBIN 29.4 pg (27.0-33.4); MEAN CORPUSCULAR HGB CONC 32.1 g/dL (32.0-36.0); MEAN CORPUSCULAR VOLUME 92 fl (80-97); PLATELET COUNT 222 10^3/uL (150-450); RED BLOOD COUNT 4.76 10^6/uL (4.35-5.55); WHITE BLOOD COUNT 11.5 10^3/uL (4.0-10.5)
[2017-02-23 04:59] LABS: BLOOD UREA NITROGEN 26 mg/dL (7-20); CALCIUM 9.4 mg/dL (8.4-10.2); GLUCOSE 169 mg/dL (75-110)
[2017-02-23 05:20] LABS: ANION GAP 4 (5-19)
[2017-02-23 05:21] LABS: CHLORIDE 96 mmol/L (98-107); POTASSIUM 4.9 mmol/L (3.6-5.0); SODIUM 140.2 mmol/L (137-145)
[2017-02-23] MEDS: HEPARIN SOD (PORCINE) 5,000 UNIT/ML 1 ML SYRINGE SUBCUT SCH (06:06)
[2017-02-23] MEDS: LANSOPRAZOLE 30 MG TAB.RAP.DR PO SCH (06:09)
[2017-02-23 06:56] LABS: ARTERIAL BLOOD BASE EXCESS 13.4 mmol/L; ARTERIAL BLOOD FIO2 28%; ARTERIAL BLOOD H2CO3 1.92 mmol/L (1.05-1.35); ARTERIAL BLOOD HCO3 40.9 mmol/L (20-26); ARTERIAL BLOOD PCO2 63.9 mmHg (35-45); ARTERIAL BLOOD PH 7.42 (7.35-7.45); ARTERIAL BLOOD PO2 92.4 mmHg (80-100); ARTERIAL BLOOD TOTAL CO2 42.9 mmol/L (23-27)
[2017-02-23] MEDS: BUDESONIDE NEB 0.5 MG/2 ML AMPUL NEB SCH (08:01)
[2017-02-23] MEDS: LEVALBUTEROL HCL NEB 1.25 MG/3 ML AMPUL NEB SCH (08:01)
[2017-02-23] MEDS: GUAIFENESIN 600 MG TABLET.SA PO SCH (10:05)
[2017-02-23] MEDS: LOSARTAN POTASSIUM 25 MG TABLET PO SCH (10:06)
[2017-02-23] MEDS: CETIRIZINE 10 MG TABLET PO SCH (10:06)
[2017-02-23] MEDS: CYANOCOBALAMIN (VITAMIN B-12) 1,000 MCG TABLET PO SCH (10:06)
[2017-02-23] MEDS: LEVOFLOXACIN 750 MG TABLET PO SCH (10:06)
[2017-02-23] MEDS: MAGNESIUM OXIDE 400 MG TABLET PO SCH (10:06)
[2017-02-23] MEDS: PREDNISONE 20 MG TABLET PO SCH (10:06)
[2017-02-23] MEDS: GLIMEPIRIDE 1 MG TABLET PO SCH (10:07)
[2017-02-23] MEDS: SODIUM CHLORIDE NASAL SPRAY 44 ML NASL SCH ×2 (10:07→12:58)
[2017-02-23] MEDS: FLUTICASONE NASAL SPRAY 50 MCG/SPRY 120 SPRAY/16 GM NASL SCH (10:07)
[2017-02-23] MEDS: NICOTINE 14 MG/24 HR PATCH.TD24 TD SCH (12:58)
[2017-02-23 13:31] VITALS: BP 145/76
[2017-02-24 09:44] LABS: CARBON DIOXIDE 40 mmol/L (22-30)
--- NOTE | 2017-02-24 17:03 | DISCHARGE SUMMARY E ---
Discharge Summary NAME: RICHARD FOOTE : 1950 AGE: 66Y ADMITTED: 02/15/2017 DISCHARGED: 02/23/2017 CODE STATUS: FULL CODE. CONSULTING TESTING MACHINE OPERATOR WELL OUTPATIENT TESTING MACHINE OPERATOR: Nico Castellanos MD DISCHARGE DIAGNOSES: Includes: 1. Chronic obstructive pulmonary disease exacerbation. 2. Acute on chronic hypoxic and hypercapnic respiratory failure. 3. Chronic hypercapnia. 4. Hypertensive urgency. 5. Diabetes mellitus, type 2. 6. Hyperkalemia. 7. Acute maxillary sinusitis. 8. Tobacco dependency, continuous. DISCHARGE MEDICATIONS: Include: 1. Prednisone 60 mg taper. 2. Levaquin 750 mg p.o. daily x2 more days. 3. Flonase 2 sprays nasally q.12 hours. 4. Omeprazole 20 mg p.o. daily. 5. Naproxen 500 mg p.o. q.12 hours p.r.n. 6. Singulair 10 mg p.o. q. hour of sleep. 7. Glucophage 2000 mg p.o. b.i.d. 8. Magnesium oxide 200 mg p.o. daily. 9. Cozaar 25 mg p.o. daily. 10. Amaryl 2 mg p.o. daily. 11. Vitamin D2 50,000 international units p.o. weekly. 12. Vitamin B12 500 mcg p.o. daily. 13. Zyrtec 10 mg p.o. daily. 14. Pulmicort 1 neb q.12 hours. 15. Lipitor 10 mg p.o. q. hour of sleep. DIET: As tolerated. ACTIVITY: As tolerated. DIAGNOSTICS: Lab values were as follows: Hematology obtained on 02/23/2017: WBC 11.5, hemoglobin is 14.0, hematocrit is 43.7, platelet count is 222,000. ABG obtained on 02/23/2017: The pH is 7.42, pCO2 is 63.9, pO2 is 93.4, bicarb is 40.9, oxygen saturation 97%. This was obtained on 28% FiO2. Chemistry obtained on 02/23/2017: Sodium is 140, potassium 4.9, chloride is 96, carbon dioxide is 30, BUN 26, creatinine is 0.0, glucose 169, calcium is 9.4, magnesium is 2.6, phosphorus 3.5. BNP is 76. Bilirubin 0.6, AST 31, ALT 36, alk phos 97. CK 135. Troponin 0.02. Total protein 8.0, albumin 4.7. Toxicology obtained on 02/15/2017 is positive for benzos. Serology obtained on 02/15/2017: Serologies for influenza are negative. Blood cultures obtained on 02/15/2017 reveal no growth. Chest x-ray obtained on 02/15/2017 reveals no acute cardiopulmonary findings. Chest x-ray obtained on 02/18/2017 reveals lungs that are hyperinflated and for obstructive disease. No acute infiltrate. Fatty nodule on the right posterior costophrenic sulcus. CT of the chest obtained on 02/22/[address] evidence of acute pulmonary emboli, with advanced obstructive lung disease. EKG obtained on 02/15/2017 reveals sinus tachycardia. HISTORY OF PRESENT ILLNESS: The patient is a 66-year-old -[place] male with a past medical history of persistent tobacco dependency, as well as oxygen-dependent COPD. The patient presented to the emergency department with a chief complaint of a 2-day history of increasing shortness of breath associated with rhinorrhea and sinus drainage. The patient denies sore throat, but admitted to subjective fevers. EMS found the patient to be tachypneic and tachycardic, with a systolic blood pressure of 205, satting at 80% on 2 liters nasal cannula. The patient was placed on CPAP and was brought into the emergency department for evaluation. The patient's chest x-ray revealed COPD, cardiomegaly and vascular congestion. The patient was placed on Bi-PAP and Solu-Medrol and was referred to the hospitalist for admission and management. HOSPITAL COURSE: The patient was admitted to [facility]. The patient was placed on Bi-PAP and was covered with steroids, as well as Levaquin. The patient had a very slow, progressive improvement. The patient's blood gas did have a pCO2 that was as high as 85.4, but did come down to 63.9. The patient appeared compensated with a pH of 7.42, with a bicarb of 40.9. The patient was able to be transitioned back to the prior oxygen settings without issue, and the patient is quite eager for discharge. The patient was seen by Dr. Castellanos with Pulmonology, and the patient will follow up on an outpatient basis. The patient does have home Bi-PAP. PHYSICAL EXAMINATION: GENERAL: The patient is a well-developed, frail-appearing 66-year-old -[place] male, who is awake, alert and oriented to person, place, time and situation. He is verbal, conversational and does not appear to be in significant distress. VITAL SIGNS: Temperature is 97.7, pulse 96, respirations 20, blood pressure 145/76, oxygen saturation is 100% on 28% FiO2. SKIN: Warm and dry. No rashes. Not diaphoretic. HEENT: Pupils equal, round and reactive to light and accommodation. Conjunctivae pink. No evidence of JVP. CVS: Heart is regular rate and rhythm. No rub. CHEST: Very diminished, symmetrical, unlabored. ABDOMEN: Soft, nontender, nondistended. BACK: No CVA tenderness. No sacral edema. EXTREMITIES: No clubbing, cyanosis or edema. PSYCHIATRIC: Appropriate affect, pleasant mood. DISCHARGE PLANNIN. The patient is advised to follow up with his primary care provider as needed. 2. The patient will follow up with Dr. Castellanos within 2 to 4 weeks for hospital followup. Time spent on this discharge, including assessment and plan, physical examination, patient education and family meeting was 25 minutes. DICTATING PHYSICIAN: JOSE MAED NP [id number] PHY#: [id number] ID: [id number] JOB#: [id number] ACCT: [id number] cc:TOBY RESTREPO M.D. JOSE MEAD NP > MTDD
[2017-02-25] MEDS ORDERED: ERGOCALCIFEROL (VITAMIN D2) 50000 UNIT (1.25 MG) CAPSULE PO SCH (10:00)
== END 2017-02-23 14:33 | disposition home or self-care (01) | DRG 189 ==
LOC: ER 04:28 → EH 06:40 → 3W 20:00
PROVIDERS: ADMIT Internal Medicine; ATTEND Internal Medicine
PROC: 5A09357 Assistance with Respiratory Ventilation, Less than 24 Consecutive Hours, Continuous Positive Airway Pressure (ICD-10-PCS; principal; 2017-02-15)
DX: J96.22 Acute and chronic respiratory failure with hypercapnia (principal); J44.1 Chronic obstructive pulmonary disease with (acute) exacerbation; J96.21 Acute and chronic respiratory failure with hypoxia; I16.0 Hypertensive urgency; E87.5 Hyperkalemia; J01.00 Acute maxillary sinusitis, unspecified; E11.9 Type 2 diabetes mellitus without complications; K21.9 Gastro-esophageal reflux disease without esophagitis; K44.9 Diaphragmatic hernia without obstruction or gangrene; M19.90 Unspecified osteoarthritis, unspecified site; Z79.84 Long term (current) use of oral hypoglycemic drugs; Z79.899 Other long term (current) drug therapy; Z99.81 Dependence on supplemental oxygen; F17.200 Nicotine dependence, unspecified, uncomplicated
CPT/HCPCS: 36415; 36600; 71045; 71275; 80048; 80053; 80307; 82550; 82553; 82803; 82962; 83735; 83880; 84100; 84484; 85025; 85027; 87040; 87804; 93005; 93010; 94640; 94660; 94668; 94762; 99285; J1644; J1720; J1815; J1940; J1956; J2060; J2920; J2930; J3490; J7512; J7620

== ENCOUNTER → 2017-08-06 | Outpatient (CLI) | payer MEDICARE, OTHER ==
[2017-08-06 16:44] LABS: ABSOLUTE BASOPHILS # (AUTO) 0.1 10^3/uL (0.0-0.2); ABSOLUTE EOSINOPHILS # (AUTO) 0.4 10^3/uL (0.0-0.6); ABSOLUTE LYMPHOCYTES (AUTO) 2.6 10^3/uL (0.5-4.7); ABSOLUTE MONOCYTES (AUTO) 0.9 10^3/uL (0.1-1.4); BASOPHILS % (AUTO) 1.2 % (0-2); EOSINOPHILS % (AUTO) 4.8 % (0-6); HEMATOCRIT 43.7 % (37.9-51.0); HEMOGLOBIN 14.4 g/dL (13.5-17.0); LYMPHOCYTES % (AUTO) 28.4 % (13-45); MEAN CORPUSCULAR HEMOGLOBIN 28.9 pg (27.0-33.4); MEAN CORPUSCULAR HGB CONC 32.8 g/dL (32.0-36.0); MEAN CORPUSCULAR VOLUME 88 fl (80-97); MONOCYTES % (AUTO) 10.2 % (3-13); PLATELET COUNT 228 10^3/uL (150-450); RED BLOOD COUNT 4.97 10^6/uL (4.35-5.55); RED CELL DISTRIBUTION WIDTH 13.6 % (11.5-14.0); SEGMENTED NEUTROPHILS % (AUTO) 55.4 % (42-78); TOTAL CELLS COUNTED % (AUTO) 100 %; WHITE BLOOD COUNT 9.1 10^3/uL (4.0-10.5)
[2017-08-06 17:08] LABS: ANION GAP 14 (5-19); BLOOD UREA NITROGEN 14 mg/dL (7-20); CALCIUM 10.4 mg/dL (8.4-10.2); CARBON DIOXIDE 32 mmol/L (22-30); CHLORIDE 99 mmol/L (98-107); CREATINE KINASE 173 U/L (55-170); GLUCOSE 90 mg/dL (75-110); POTASSIUM 4.2 mmol/L (3.6-5.0)
== END ==
LOC: OD 15:55
PROVIDERS: ATTEND Internal Medicine Pulmonary Disease
DX: J96.12 Chronic respiratory failure with hypercapnia (principal)
CPT/HCPCS: 36415; 80048; 82550; 85025

== ENCOUNTER → 2018-07-15 | Outpatient (CLI) | payer MEDICARE, OTHER ==
--- NOTE | 2018-07-15 12:20 | RADIOLOGY REPORT (SQ) ---
EXAM DESCRIPTION: CHEST PA/LATERAL COMPLETED DATE/TIME: 07/15/2018 11:38 am REASON FOR STUDY: COUGH COMPARISON: 12/21/2015 EXAM PARAMETERS: NUMBER OF VIEWS: two views TECHNIQUE: Digital Frontal and Lateral radiographic views of the chest acquired. RADIATION DOSE: NA LIMITATIONS: none FINDINGS: LUNGS AND PLEURA: The lungs are hyperexpanded. There is no infiltrate, effusion, or mass. MEDIASTINUM AND HILAR STRUCTURES: No masses or contour abnormalities. HEART AND VASCULAR STRUCTURES: Heart normal size. No evidence for failure. BONES: No acute findings. HARDWARE: None in the chest. OTHER: No other significant finding. IMPRESSION: Chronic lung changes with no acute cardiopulmonary finding. TECHNICAL DOCUMENTATION: JOB ID: [id number] [employer]- All Rights Reserved Reading location - IP/workstation name: [email or web address]
== END ==
LOC: OD 11:17
PROVIDERS: ATTEND Internal Medicine Pulmonary Disease
DX: R05 Cough (principal)
CPT/HCPCS: 71046; 87070; 87205